=== PATIENT | female | born 1955 | race Caucasian/White ===

== ENCOUNTER → 2020-05-28 16:28 | Outpatient (CLI) | payer MEDICARE, SELFPAY ==
[2020-05-28 17:12] LABS: Erythrocyte Sedimentation Rate 26 mm/hr (0-30)
[2020-05-28 17:15] LABS: Absolute Lymphocyte Count 2.44 X10^3/uL (0.83-4.51); Absolute Neutrophil Count 3.9 X10^3/uL (2.0-7.7); Basophil# 0.03 X10^3/uL; Basophil% 0.4 % (0-1); Eosinophils% 1.4 % (0-5); Hematocrit 41.8 % (37-47); Hemoglobin 14.1 g/dL (12.0-15.0); Lymphocyte # 2.44 X10^3/ul (4.0); Lymphocyte % 34.8 % (19-41); Mean Corp Hgb Conc 33.7 g/dL (32-36); Mean Corpuscular Hgb 32.1 pg (27.0-32.0); Mean Corpuscular Volume 95.2 fL (81-99); Mean Platelet Vol. 10.4 fl (6.2-12.0); Monocyte# 0.57 X10^3/uL; Monocyte% 8.1 % (0-10); NRBC Flagged by Analyzer 0 % (0-5); Neutrophil # 3.85 X10^3/uL (2.7-7.7); Platelet Count 260 K/mm3 (150-450); Red Blood Count 4.39 M/mm3 (4.2-5.4)
[2020-05-28 17:35] LABS: CRP < 2.90 mg/L (0.0-3.0)
== END ==
PROVIDERS: PCP Family Medicine; Referring Provider Specialist; Visit Provider Specialist
DX: Z96.651 Presence of right artificial knee joint (principal)
CPT/HCPCS: 36415; 85025; 85652; 86140

== ENCOUNTER → 2020-06-24 15:31 | Outpatient (CLI) | payer MEDICARE, SELFPAY ==
[2020-06-24 18:56] LABS: Anion Gap 6 (5-15); BUN 15 mg/dL (7-18); BUN/Creat Ratio 14.4 RATIO (10-20); Calcium,Total 8.8 mg/dL (8.5-10.1); Chloride 104 mmol/L (98-107); Creatinine, Serum 1.04 mg/dL (0.55-1.02); EST Glomerular Filtration Rate 56 mL/min (>60); Est Glom Filt Rate - Afr Amer 68 mL/min (>60); Glucose 81 mg/dL (74-106); Potassium 3.5 mmol/L (3.5-5.1); Sodium Level 138 mmol/L (136-145)
== END ==
PROVIDERS: PCP Family Medicine; Visit Provider Family Medicine
DX: Z01.818 Encounter for other preprocedural examination (principal)
CPT/HCPCS: 36415; 80048

== ENCOUNTER → 2020-06-28 06:43 | Outpatient (CLI) | payer MEDICARE, SELFPAY ==
--- NOTE | 2020-06-28 07:02 | CT_ITS ---
STUDY: CT SCAN LOWER EXTREMITY LEFT REASON FOR EXAM: Female, 65 years old. LETA LEFT KNEE RADIATION DOSAGE (If Supplied By Facility): CTDIvol = ( 18.76 ) mGy, DLP = ( 1298.16 ) mGycm. Individualized dose optimization techniques were used for this CT.? TECHNIQUE: Multiple axial tomographic images of the hip joint, knee joint and ankle joint were obtained. Coronal and sagittal reconstruction was obtained as well. COMPARISON: None. FINDINGS: Imaging of the left hip joint was obtained. No significant abnormality is seen. There is a marked degree of joint space narrowing involving the medial compartment of the left knee joint with degenerative spur formation along the medial femoral condyle and the medial tibial plateau. There is also evidence of a degenerative spur formation along the anterior aspect of the medial tibial plateau. Mild to moderate degree of joint space narrowing involving the patellofemoral joint. Small joint effusion. Imaging of the ankle joint demonstrates no significant abnormality. Small plantar spur. CT/Extremity Lower without Contra IMPRESSION: Marked degree of joint space narrowing involving the medial compartment of the knee joint as described with a small joint effusion. Moderate degree of joint space narrowing of the patellofemoral joint. Electronically Signed: Nixon Zaidi, at 9:11 EDT , Service support ,
== END ==
PROVIDERS: PCP Family Medicine; Referring Provider Specialist; Visit Provider Specialist
DX: M21.162 Varus deformity, not elsewhere classified, left knee (principal)
CPT/HCPCS: 73700

== ENCOUNTER 2020-07-14 05:16 | Day surgery (SDC) | payer MEDICARE, SELFPAY ==
--- NOTE | 2020-06-28 08:54 | HP.PCM_ITS ---
History and Physical History and Physical [facility] Patient Name: Nini Diamond : 1955 From: [facility] DATE OF SURGERY: 07/14/2020 SCHEDULED PROCEDURE: left total knee arthroplasty HISTORY OF PRESENT ILLNESS: Preoperative history and physical exam was performed on June 28, 2020. This is a 65-year-old female who has been having ongoing pain for over 4 months with her left knee. She denies any trauma or injury. Patient has had a previous right total knee arthroplasty on July 06, [address] Krause. This was followed by manipulation in July 2016. She did have inflammatory lab work obtained by Dr. Yoel Sotomayor which had normal ESR and CRP. Patient states her right knee surgery did not go as well. Her pain with the left knee can reach 8/10 with activities. Pain is over the anterior aspect. She has increased pain going up and down stairs. She does get occasional sensation of locking with the left knee. She does have start up pain on the left. Patient has tried previous conservative measures including rest, ice, heat with minimal relief. She has been through home exercises with minimal relief. She has been on oral medications consisting of meloxicam and a joint supplement for inflammation. She has had previous viscose supplementation and cortisone injections with minimal relief. Patient uses a cane on occasion due to the knee pain. She currently denies any chest pain, shortness of breath, fevers chills, or recent infections. We have obtain surgical clearance from her primary care physician Dr. Gray. After failing conservative measures and discussing treatment options with Dr. Yoel Sotomayor, the patient does wish to proceed with a left total knee arthroplasty. REVIEW OF SYSTEMS: ROS: Const: Denies change in appetite, fever and weight change. CV: Denies chest pain, heart murmur and irregular heartbeat. Resp: Denies cough, pneumonia, shortness of breath, tuberculosis and wheezing. GI: Denies constipation, diarrhea, heartburn, nausea, rectal itching, bloody stools and vomiting. : Denies incontinence. Musculo: Reports leg swelling and weakness, but denies pain and trouble walking. Skin: Denies Raynaud's, history of shingles and tattoo. Neuro: Denies ambulatory dysfunction, dizziness, numbness/tingling and tremor. Psych: Reports anxiety and stress, but denies insomnia. Buck/Lymph: Denies anemia, bleeding/bruising tendency and past transfusion. Reviewed, no changes. PAST MEDICAL HISTORY: Advance Care Plan: Other Directive, LIVING WILL Effective Date: 08/06/2019 Other Directive, POA Effective Date: 08/06/2019 PMH: Medical Problems: Arthritis, Osteoarthritis Accidents: Other - (05/2019) Finger - 1st Joint Surgical Hx: RT TKR - (2015) Anesthesia Complications: None Assistive Devices: Glasses Reviewed and updated. SOCIAL HISTORY: SH: Marital: Single.Occupation: Currently Working.Work Status: Currently Working - [employer].Hand Dominance: Ambidextrous. Personal Habits: Cigarette Use: Never Smoked Cigarettes.Smokeless Tobacco: Never Used Smokeless Tobacco.E-Cigarette Use: Never Used.Alcohol: Occasionally.Drug Use: Denies Use.Enjoy Exercising: Exercises 1-3 X/Week. Reviewed, no changes. VITALS: Ht: 66.5 Wt: 209lb 6oz Wt k.[id number] BMI: 33.3 BP: 132/82 Pulse: 72 Resp: 22 T: 98.0 T: 36.7C Pain Level: 0 ALLERGIES: No Known Drug Allergy MEDICATIONS: Oxycodone HCL 5 mg 1-2 tab by mouth every 4 hours, Promethazine HCL 12.5 mg 1-2 tablets by mouth every 6 hours, Famotidine 20 mg 1 by mouth every day, Flonase Allergy Relief 50 mcg/Act one spray as needed, Claritin 10 mg 1 cap by mouth daily, Multivitamin Adult 1 by mouth every day, Vitamin C 500 mg 2po qday, Supplement daily PRE-OP EXAM: General appearance:NORMAL Other: Eyes: Conjunctivae and lids: NORMAL Pupils: ERR Ears, Nose, Mouth, and Throat: NORMAL Other: Inspection of lips, teeth and gums: NORMAL Other: Neck: Examination of neck: no masses noted. Respiratory: Assessment of respiratory effort: NORMAL Other: Auscultation of lungs: clear to auscultation no wheezes, rhonchi or rales. Cardiovascular: Auscultation of heart: regular rate and rhythm, positive systolic murmur. Exam of carotid arteries: NORMAL Other: Gastrointestinal: Exam of abdomen: soft, nontender, nondistended bowel sounds present. PHYSICAL EXAMINATION: On clinical exam patient does walk with an antalgic gait. Left knee has tenderness to palpation over the medial joint line. Patient has a varus alignment which is only partially correctable. Patient has firm endpoint with posterior drawer testing. Range of motion left knee: 15 to 115 flexion. She has increased pain with flexion exercises. She has moderate effusion. Sensation intact to light touch. Neurovascularly intact. IMAGING STUDIES: Previous x-rays of the left knee reveal varus alignment with medial joint space narrowing, subchondral sclerosis, osteophyte formation consistent with severe stage IV osteoarthritis. IMPRESSION: 1. Severe left knee osteoarthritis 2. Presence of right total knee arthroplasty 3. Seasonal allergies PLAN: Dr. Yoel Sotomayor did discuss and review with the patient all treatment options including surgical versus nonsurgical options. Patient does wish to proceed with the above-stated procedure. Potential risks, benefits, and complications of the procedure were discussed in detail including but not limited to , infection, nerve and blood vessel damage, persistent pain, numbness, tingling, paresthesias, blood clot, pulmonary embolism, and requirement for possible fu rther surgery. The patient expressed full understanding and has no further questions for the doctor. Patient does agree to proceed with the above-stated procedure and has signed the surgery consent form. We discussed the current risks associated with COVID 19. This does include the risk of exposure while in the hospital. Patient was reassured local hospitals have low infection rates and are taking all necessary precautions to avoid exposure to patients. In addition, we discussed strategies that can be used to help limit exposure including those that limit the patient's time in the hospit al. Also using strategies to limit the patient's need for continued inpatient services after being discharged from the hospital. Patient was notified that we will need to comply with any screening or testing the hospital wishes to perform or that surgery may be delayed for any positive results. This dictation was created using voice recognition software. Phonetic and/or grammatical errors may exist. ___ I have re-examined the patient. There are no clinical changes since date of exam. ___ See progress notes for changes. ___ Dictated on admission Date: Time: Signature:
[2020-07-08 15:27] LABS: AST(SGOT) 24 U/L (15-37); Alanine Aminotransfer ALT/SGPT 28 U/L (13-56); Albumin, Serum 3.6 g/dL (3.2-5.0); Alkaline Phosphatase 93 U/L (45-117); Protein, Total 7.6 g/dL (6.4-8.2)
[2020-07-14] VITALS (8 sets, daily range): BP systolic 96–125; BP diastolic 59–95; PULSE 75–108; RESP 16–17; TEMP 36.1–36.7; O2SAT 96–100; BMI 35.8
[2020-07-14] MEDS: Lactated Ringers 1,000 ML 999 ML IV ×2 (06:11→07:00)
[2020-07-14] MEDS: Lactated Ringers 1,000 ML 75 ML IV (06:11)
[2020-07-14] MEDS: Cefazolin 2 GM in 0.9% Normal Saline 100 ML IV (06:11)
[2020-07-14] MEDS: Gabapentin 600 MG Tablet PO (06:12)
[2020-07-14] MEDS: Scopolamine 1mg/72hr Patch 1 PATCH TRANSDERM. (06:12)
[2020-07-14] MEDS: Acetaminophen 500 MG Tablet 1000 MG PO (06:13)
[2020-07-14] MEDS: Celecoxib 200 MG Capsule 400 MG PO (06:13)
[2020-07-14 06:56] LABS: Bedside Glucose 93 mg/dL (70-110)
[2020-07-14] MEDS: dexAMETHasone 10 MG/ML Vial IV (07:40)
--- NOTE | 2020-07-14 08:49 | OP.PCM_ITS ---
Report of Operation Date of Procedure: 07/14/20 Pre-Operative Diagnosis: Left knee primary osteoarthritis Post-Operative Diagnosis: Left knee primary osteoarthritis Surgery/Procedure Performed:: Left minimally invasive robotic assisted total knee replacement Description of Surgical Findings:: Stable knee with good patella tracking maintenance manager: Aleshia Angulo Type of Anesthesia:: Spinal Anesthesiologist: Lucio Granado Special Medications: 2 g Ancef, 1 g TXA at incision, 1 g TXA closure, 10 mg Decadron, joint cocktail (5 mg Duramorph, 30 mL of 0.5% Ropivicaine, 1000 units of epinephrine, 30 mg of Toradol) Estimated Blood Loss (mL): 75 Fluids Replaced: 900 mL crystalloid Description of Procedure: Implants used: 1. Ines size 3 triathlon cruciate retaining distal femoral press-fit component 2. Marcus Hook size 4 press-fit tritanium tibial baseplate 3. Ines X3 10 mm CS polyethylene 4. Marcus Hook X3 32 mm6 asymmetric patella Brief history operative indications:65-year-old F with history of left knee osteoarthritis with radiographic findings with loss of joint space, osteophyte formation and subchondral sclerosis. Failed conservative measures as mentioned in the H&P. Discussion of total knee arthroplasty as well as risk and benefits were discussed the patient including but not limited to blood loss, DVTs, PEs, neurovascular damage, general risk of anesthesia including loss of life, and stiffness or instability were discussed with patient. Patient demonstrated understanding and was able to sign informed consent. Procedure: On the date of procedure patient's left lower extremity was marked in the preoperative area. The patient was then taken back to the operating room where the patient was placed on the table in the supine position. All bony prominences were identified a well-padded. Anesthesia assumed control of the C-spine and airway and remained controlled throughout the remainder of the procedure. A tourniquet was placed on the left upper thigh and the leg was prepped in a sterile fashion. The surgeon then scrubbed at this time .Upon reentering the room left lower extremity was draped in a standard orthopedic fashion. A timeout was then called and everyone agreed upon the side, the site, the procedure to be performed, patient's identity and antibiotics given. Esmarch bandage was used to exsanguinate the extremity and the tourniquet was placed up to 250 mmHg with the knee in flexion. A midline skin incision was made and sharp dissection was taken down through skin subcutaneous tissue and fat. The standard medial parapatellar incision was made and the patella was subluxed laterally. An Appropriate deep MCL release was done and the fat pad was resected. Our attention was then directed to the patella. The patella was everted and a flat resection was made. The knee was then flexed up in 2 femoral pins were placed inside the incision and 2 tibial pins were placed outside the incision in the medial tibia bicortically. Once this was completed the 2 checkpoints in the femur and tibia were placed. Knee was then flexed up and the bony landmarks were registered. Once this was completed knee was taken through range of motion and manually stressed allowing us to a plan for an appropriate tibial cut. The robotic arm was brought into the field sterilely and checkpoint and saw were registered. Based on the patient's deformity the tibial cut was made in 2 degrees of varus. At this time the tensioner was then placed in the joint and ligament tension was checked at 90 degrees and full extension. Based on the patient's ligamentous tension appropriate adjustments were made to the operative plan and ligament releases were done. Once we were happy with our operative plan with balanced flexion and extension gaps our attention was directed to the femur. The robot was brought into the field sterilely and registered. Posterior condylar cuts, anterior chamfer cuts and anterior cuts were appropriately made for a size 3 femur. When these were completed the saws were switched out in the distal femoral and posterior chamfer cuts were made. Protecting the soft tissue throughout this time. A size 4 tibial base plate was selected. the knee was flexed to 90 degrees and the soft tissues and posterior osteophytes were removed from the joint. 40 cc of the periarticular injection was injected into the posterior medial corner of the joint. The appropriate trials were then placed on the femur and tibia. A trial polyethylene was trialed to ensure proper balancing and stability of the knee. The appropriate tibial internal rotation was then marked with a bovie. Our attention was then directed to the patella. The lug holes were drilled and the patella trial was placed. Patellar tracking was checked and deemed appropriate. Once we were happy lug holes were drilled for the femur and trial components w ere removed. the tibia was subluxed and pinned into place and the keel was punched and drilled appropriately. Final components were verified and opened, and cement was mixed in a vacuum. [place] Simplex cement was used. The wound was copiously irrigated with normal saline. When the cement was ready the components were impacted into place starting with the tibia, femur and finally cementing the patella. The trial poly component was placed and the knee was placed in full extension. All excess cement was removed in the process. Once the cement had cured the tracking, alignment and balance were verified and a size 10 mm CS polyethylene component was placed. Once the final components were placed an Irrisept lavage was performed and the wound was copiously irrigated with normal saline solution and the periarticular injection was given. The wound was closed in a layer valera fashion using #1 vicryl interrupted sutures for the arthrotomy, 2-0 interrupted Vicryl suture for the subcuticular layer and ken for final skin closure. A sterile compressive dressing was then placed. The patient was then awakened from anesthesia, transferred to the [facility] and transferred to the PACU for recovery. Post op plan DVT ppx: ASA 81mg BID, thigh high compression stockings Follow up: in office in 2 weeks for wound check PT: to start POD #0 at hospital, outpatient PT should be arranged. Due to the complexity of this case robotic arm was used to assist in the surgery to improve accuracy and clinical outcomes. - Complications No intraoperative complications - Admit VTE Documentation VTE Present on Admission: No VTE Mechan Device Prophylaxis: SCD's, Thigh High KEYA Hose VTE Pharm Prophylaxis ordered?: Yes
[2020-07-14] MEDS: Lactated Ringers 1,000 ML 125 ML IV ×2 (09:30→11:30)
--- NOTE | 2020-07-14 09:50 | RAD_ITS ---
STUDY: X-RAY - LEFT KNEE REASON FOR EXAM: Female, 65 years old. POST OP LEFT TKA TECHNIQUE: 2 view(s) of the knee. COMPARISON: None. FINDINGS: Normal visualized distal femur. Normal visualized proximal tibia and fibula. Normal proximal tibiofibular articulation. The patient is status post total knee replacement. There is good alignment. Postoperative soft tissue changes. RAD/Knee 1 or 2 Views IMPRESSION: Status post total knee replacement. There is good alignment. Postoperative soft tissue changes. Electronically Signed: Nixon Zaidi, at 13:41 EDT , Service support ,
--- NOTE | 2020-07-14 11:27 | SUR.PHASEII ---
ABLE TO STAND AT BEDSIDE USING WALKER AND MARCH IN PLACE. REPORTS PAIN 3/10 TO LEFT KNEE WHICH IS TOLERABLE, DENIES NEED FOR PAIN MED. INSTRUCTED TO NOTIFY RN IF PAIN REACHES 5-6/10. PATIENT INCONTINENT URINE, SKIN CARE PROVIDED. NOTIFIED DENY PT, THAT PATIENT READY FOR EVALUATION.
[2020-07-14] MEDS: Cefazolin 1 GM/50 ML BAG IV (13:11)
== END 2020-07-14 14:02 | disposition home or self-care (01) ==
LOC: SDC 05:17 → AC 05:17
PROVIDERS: Anesthesiology; PCP Family Medicine; Referring Provider Specialist; Visit Provider Specialist
PROC: 0SRD0JZ Replacement of Left Knee Joint with Synthetic Substitute, Open Approach (ICD-10-PCS; CPT 27447; principal; 2020-07-14 07:00)
DX: M17.12 Unilateral primary osteoarthritis, left knee (principal); Z20.828 Contact with and (suspected) exposure to other viral communicable diseases; Z79.899 Other long term (current) drug therapy; K21.9 Gastro-esophageal reflux disease without esophagitis; Z86.010 Personal history of colon polyps; Z86.19 Personal history of other infectious and parasitic diseases
CPT/HCPCS: 01400; 27447; 64447; S2900; 36415; 73560; 80076; 82962; 83735; 87077; 87081; 87635; 97162; C1776; C9803; J7120; J2405; U0003

== ENCOUNTER → 2020-08-03 16:19 | Outpatient (CLI) | payer MEDICARE, SELFPAY ==
[2020-08-03 14:31] VITALS: BMI 36.0
[2020-08-06 16:48] LABS: HPV APTIMA, High Risk Negative (Negative)
== END ==
PROVIDERS: PCP Family Medicine; Referring Provider Obstetrics & Gynecology; Visit Provider Obstetrics & Gynecology
DX: Z12.4 Encounter for screening for malignant neoplasm of cervix (principal); R87.619 Unspecified abnormal cytological findings in specimens from cervix uteri
CPT/HCPCS: 87624; 88175; G0145

== ENCOUNTER 2020-09-29 06:26 | Day surgery (SDC) | payer MEDICARE, SELFPAY ==
[2020-08-03 14:31] VITALS: BMI 36.0
[2020-09-29 06:52] VITALS: BP 131/70; PULSE 85; RESP 14; TEMP 36; O2SAT 96; BMI 34.2
[2020-09-29] MEDS: Lactated Ringers 1,000 ML 100 ML IV (07:06)
--- NOTE | 2020-09-29 08:06 | OP.PCM_ITS ---
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 She struggled to regain flexion. We elected to proceed with a manipulation if she needed 1 on the contralateral side. Procedure: On the date of procedure patient's right lower extremity is marked in the preoperative area. They were brought back to the operating room where they were left on her gurney. Anesthesia was administered and anesthesia assumed control her C-spine airway and remaining control throughout the main procedure. Once patient was comfortably asleep the preoperative range of motion was measured at 95?. Gentle pressure was placed on the knee with the hip in flexion scar tissue was broken up and the knee was flexed 115? with calf to thigh at extreme flexion. At the conclusion of the manipulation the knee is placed in extension lateral suprapatellar portal was identified and a 18-gauge needle was used to place an intra-articular cortisone injection containing 2 mL of betamethasone and 10 mL of 0.5% Marcaine with epinephrine. Patient tolerated the procedure well was awakened by anesthesia and transferred back to recovery. Postoperative plan: Patient will proceed with physical therapy this afternoon. They varghese start a prednisone Dosepak tomorrow. They will have physical therapy every day for 2 weeks and follow-up in 2 weeks. Montelukast will be written for 6 weeks. - Complications No intraoperative complications - Admit VTE Documentation VTE Present on Admission: No VTE Mechan Device Prophylaxis: SCD's, Thigh High KEYA Hose VTE Pharm Prophylaxis ordered?: Yes
[2020-09-29 08:16] VITALS: BP 126/58; BP 131/70; PULSE 82; RESP 16; TEMP 36.6; O2SAT 98
[2020-09-29 08:30] VITALS: BP 108/67; BP 131/70; PULSE 87; RESP 16; O2SAT 99
[2020-09-29] MEDS: Ketorolac 15 MG/ML Vial IV (08:44)
[2020-09-29 08:46] VITALS: BP 126/70; BP 131/70; PULSE 91; RESP 16; O2SAT 95
[2020-09-29 08:56] VITALS: BP 131/70; BP 134/58; PULSE 84; RESP 16; TEMP 37.1; O2SAT 96
[2020-09-29 09:10] VITALS: BP 131/70
== END 2020-09-29 09:14 | disposition home or self-care (01) ==
LOC: SDC 06:42 → AC 06:42
PROVIDERS: PCP Family Medicine; Referring Provider Specialist; Visit Provider Specialist
PROC: (CPT 27570; principal; 2020-09-29 07:55)
DX: M24.662 Ankylosis, left knee (principal); Z96.652 Presence of left artificial knee joint; K21.9 Gastro-esophageal reflux disease without esophagitis; Z86.19 Personal history of other infectious and parasitic diseases; Z79.899 Other long term (current) drug therapy
CPT/HCPCS: 01380; 27570; 64447; 87426; C9803; J7120

== ENCOUNTER → 2020-11-25 08:21 | Outpatient (CLI) | payer MEDICARE, SELFPAY ==
[2020-11-25 09:47] LABS: Anion Gap 6 (5-15); BUN 25 mg/dL (7-18); BUN/Creat Ratio 26.6 RATIO (10-20); Calcium,Total 9.1 mg/dL (8.5-10.1); Chloride 103 mmol/L (98-107); Cholesterol 213 mg/dL (200); Creatinine, Serum 0.94 mg/dL (0.55-1.02); EST Glomerular Filtration Rate 63 mL/min (>60); Est Glom Filt Rate - Afr Amer 77 mL/min (>60); Glucose 77 mg/dL (74-106); High Density Lipoprotein 63 mg/dL; Potassium 3.8 mmol/L (3.5-5.1); Sodium Level 137 mmol/L (136-145); Triglycerides 117 mg/dL; Very Low Density Lipoprotein 23 mg/dL (5-40)
== END ==
PROVIDERS: PCP Family Medicine; Visit Provider Family Medicine
DX: Z00.00 Encounter for general adult medical examination without abnormal findings (principal); N18.30 Chronic kidney disease, stage 3 unspecified; E78.5 Hyperlipidemia, unspecified
CPT/HCPCS: 36415; 80048; 80061

== ENCOUNTER 2021-01-19 07:51 | Day surgery (SDC) | payer MEDICARE, SELFPAY ==
[2021-01-19] VITALS (7 sets, daily range): BP systolic 92–118; BP diastolic 54–81; PULSE 53–72; RESP 16–18; TEMP 36.8–37.1; O2SAT 99–100; BMI 35.0
[2021-01-19] MEDS: Lactated Ringers 1,000 ML 100 ML IV (08:10)
--- NOTE | 2021-01-19 08:17 | HP.PCM_ITS ---
HPI - General HPI Narrative LUIS ARMANDO KHAN, is a 66 F who presents for screening colonoscopy due to family history of colon cancer and history of polyps. Patient's father was age 40 when he was diagnosed with colon cancer. Patient last colonoscopy was in 2017 she did have 1 or 2 polyps at that time per patient. Patient was scheduled to come back in 3 years however patient did have knee surgery in that time and was unable to come back that soon. Patient has bowel once daily denies any blood. Denies any chronic abdominal pain/nausea/vomiting/reflux. FORMERLY [facility], [facility] Medical History (Updated 01/19/21 @ 09:[address] Brigette Corley MD) Family history of colon cancer Heartburn Hepatitis History of colon polyps Non-smoker Post-menopausal Wears glasses Home Medications fluticasone propionate 1 spray NASAL DAILY 06/29/20 [History Last Taken Unknown] loratadine 10 mg PO DAILY 06/29/20 [History Last Taken Unknown] jq-nog-eiurl-calcium carb-K1 1 ea PO DAILY 06/29/20 [History Last Taken Unknown] Allergy/AdvReac Type Severity Reaction Status Date / Time No Known Allergies Allergy Verified 01/19/21 08:16 Family History (Updated 01/19/21 @ 09:[address] Brigette Corley MD) Father Colon cancer Mother Heart disease COPD (chronic obstructive pulmonary disease) Other Family history of colon cancer Surgical History (Updated 01/17/21 @ 15:43 by Ramya Turner) H/O section H/O knee surgery History of tonsillectomy and adenoidectomy Hx of left knee surgery Social History (Updated 08/03/20 @ 15:[address] 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 [employer] Smoking Status: Never smoker second hand exposure: No alcohol intake: current alcohol intake frequency: holidays/special occasions only substance use type: does not use seatbelt use: always do you feel safe at home: Yes Past Medical/Surgical History Planned Operation Planned Operative Procedure/s: cscope open access S.O.S: No Previous Hospitalizations/Surgeries HX Hospitalizations: No HX of Surgeries: tonsillectomy age 5 infertility procedure/lap/1989 age 37 total right knee 2016 colonoscopy x3 L TKR 07/14/20 Any Problems With Anesthesia: No You/Your Family Experience Fever (Hyperthermia) With Anes: No Cholinesterase deficiency: No Cardiovascular Hx Chest Pain within Last 2 months: No Hx of Irregular Heartbeat and/or Afib: No Hx Heart Attack: No Hx Congestive Heart Failure: No Hx Rheumatic Fever: No Hx Hypertension: No Hx Internal Defibrillator: No Hx Pacemaker: No Hx Cardiac Catheterization: No Hx Cardiac Surgery/Stents/Etc.: No Hx Stress Test: No Hx Pain in Legs when Walking/Leg Cramps: No Respiratory Chronic Cough: No HX of Shortness of Breath: No (denies) Hoarseness: No Hx Chronic Obstructive Pulmonary Disease (COPD): No Hx Asthma: No Hx Emphysema: No Hx Sleep Apnea: No Hx Respiratory Tract Infection/Cold (presently): No Do You Snore Loudly (louder than talking or can be heard): No Do You Often Feel Tired/ Fatigued/ Sleepy Dring Daytime?: No Has Anyone Observed You Stop Breathing During Sleep?: No Result (for STOP score): Negative Hx Smoking: No Smoking Status: Never smoker Gastrointestinal Hx Gastroesophageal Reflux: Yes (occas) Controlled With Meds: Yes (TUMS as needed) Hx Gastrointestinal Disorders: Yes (polyps) Hx Gastrointestinal Bleed: No Hx Ulcer: No Hx Hiatal Hernia: No Difficulty Chewing/Swallowing: No Special diet followed at home: No Hx Unplanned Weight Loss of 20#: No HX Unplanned Weight Gain of 20#: No Neurological Hx Seizures: No HX Syncope/Blackout Spells/Unconsciousness: No Hx Transient Ischemic Attacks (TIA): No Hx Multiple Sclerosis: No Hx Parkinson's Disease: No Hx Head/Neck Injury: No Hx Headaches: No Hx Back Injury/Pain: No Recent Onset of Speech Difficulty: No Restless Legs: No Does patient have nerve stimulator: No Blood Disorder Hx Leukemia: No Bleeding Tendencies: No Hx Deep Vein Thrombosis: No Hx High Cholesterol: No (borderline) Blood Transmitted Disease: No Hx Hepatitis: Yes (age 7,treated) Hx Cirrhosis: No Hx Anemia: No Hx Blood Disorders: No Reproduction : No Is Patient Lactating: No Hx Hysterectomy: No Hx Tubal Ligation: No Are You Post Menopause: Yes Genitourinary Hx Renal Disease: No (denies problems voiding post op) Musculoskeletal Hx Arthritis: Yes Hx Rheumatoid Arthritis: No Hx Gout: No Recent Onset of an Orthopedic Problem: No (chronic knee pain) Endocrine Hx Diabetes: No Thyroid Disease: No Hx Steroid Therapy: No Psycho/Social Hx Substance Use: No Hx Alcohol Use: No Hx Anxiety: No Hx Depression: No Mental Illness: No Hx Dementia: No Miscellaneous Hx Cancer: No Recent Exposure to Contagious Disease: No Hx of C-Diff: No Any Loose Teeth: No Allergies No Known Allergies Allergy (Verified 01/19/21 08:16) Discharge Is Pt Admitted From a Shelter, or a Prison: No After D/C, Where Do you Plan to Go: Return Home From the PAT History Number of Risk Factors: 2 Physical Exam Const alert, oriented x3 and no apparent distress HEENT normocephalic and head/scalp atraumatic Resp normal respiratory effort Cardio regular rate GI soft to palpation and non-distended Palpation: Negative for tender or guarding Extremity no clubbing, cyanosis or edema Neuro CN's II-XII intact bilaterally Psych mental status grossly normal Assessment & Plan Assessment/Plan (1) Family history of colon cancer: Status: Chronic Code(s): Z80.0 - Family history of malignant neoplasm of digestive organs (2) History of colon polyps: Status: Chronic Code(s): Z86.010 - Personal history of colonic polyps Procedure Criteria Procedure Type: Elective COVID Risk Discussion: The surgeon/proceduralist and patient have discussed in detail the risk of exposure to and/or potential harm posed by the COVID-19 virus with having a surgery/procedure at this time versus the risk of delaying the surgery/procedure. It is not possible to know either the risk of delaying the surgery or procedure or chance of getting an infection with perfect accuracy, but a joint decision was made between the patient and the surgeon/proceduralist to proceed at this time with the scheduled surgery/procedure as indicated on the consent form. Surgery Risks - Colonoscopy Risks Include but are not Limited To: Risks include but are not limited to: Bleeding, perforation requiring further surgery, inability to complete colonoscopy requiring barium enema.
--- NOTE | 2021-01-19 09:00 | COLBX_PTH ---
PATIENT: LUIS ARMANDO KHAN LOC: EN U#:[id number] AGE/SX: 66/F ROOM: RE01/19/[address]: Dr. Brigette Corley MD : 1955 BED: DIS: 01/19/2021 SPEC #: [id number] RECD: 01/19/21 11:37 STATUS: KADEEM REEfraín #: [id number] PHYLLIS: 01/19/21 09:[address]: Brigette Corley DEPT: SURGICAL PATHOLOGY RECD BY: Bucky Hadley ENTERED: 01/19/21 13:26 SP TYPE: COLON BX OT DR: Dr. Argenis Gray MD Tissues: A - Descending colon B - Sigmoid colon biopsy Procedures: Surgery Specimen Level IV HEADER OPERATION: Colonoscopy ? open access (MAC) PRE-OP DIAGNOSIS: Family history of malignant neoplasm of digestive organs TISSUE SUBMITTED: A ? Biopsy of descending colon at 70 cm, B ? Sigmoid polyp biopsy MICROSCOPIC DIAGNOSIS A. Descending colon at 70 cm, biopsy: Fragments of hyperplastic polyp. B. Sigmoid polyp, biopsy: Fragments of colonic mucosa, no pathologic diagnosis. JERONIMO:mari 01/20/2021 MICROSCOPIC DESCRIPTION Slides are reviewed. GROSS DESCRIPTION A - Received in fixative is one container labeled with the patient's name and designated biopsy of descending colon at 70 cm. The specimen consists of multiple irregular fragments of light laird soft tissue that in aggregate measure 2 x 0.5 x 0.1 cm. The specimen is totally submitted in one cassette. B - Received in fixative is one container labeled with the patient's name and designated sigmoid polyp biopsy. The specimen consists of multiple irregular fragments of light laird soft tissue that in aggregate measure 1 x 0.3 x 0.1 cm. The specimen is totally submitted in one cassette. / JERONIMO:mari 01/19/21 TC:1 CPT: 12552 x2
--- NOTE | 2021-01-19 09:49 | OP.COLON_ITS ---
Patient Name: Nini Diamond Procedure Date: 01/19/2021 9:08 AM Date of : 1955 Age: 66 Procedure: Colonoscopy Indications: High risk colon cancer surveillance: Personal history of colonic polyps, Family history of colon cancer in a first-degree relative Providers: Brigette Corley MD Referring MD: Argenis Gray Medicines: Monitored Anesthesia Care Patient Profile: This is a 66 year old female. Last Colonoscopy: 2016. Complications: No immediate complications. Procedure: Pre-Anesthesia Assessment: - Prior to the procedure, a History and Physical was performed, and patient medications and allergies were reviewed. The patient's tolerance of previous anesthesia was also reviewed. The risks and benefits of the procedure and the sedation options and risks were discussed with the patient. All questions were answered, and informed consent was obtained. Prior Anticoagulants: The patient has taken no previous anticoagulant or antiplatelet agents. ASA Grade Assessment: Per anesthesia. After reviewing the risks and benefits, the patient was deemed in satisfactory condition to undergo the procedure. After I obtained informed consent, the scope was passed under direct vision. Throughout the procedure, the patient's blood pressure, pulse, and oxygen saturations were monitored continuously. The colonoscope was introduced through the anus and advanced to the cecum, identified by the appendiceal orifice, ileocecal valve and palpation. The colonoscopy was performed without difficulty. The patient tolerated the procedure well. The quality of the bowel preparation was good. Scope In: 9:17:46 AM Scope Withdrawal Time 0 hours 16 minutes 10 seconds Scope Out: 9:40:30 AM Total Procedure Duration Time 0 hours 22 minutes 44 seconds Findings: Hemorrhoids were found on perianal exam. Internal hemorrhoids were found. The hemorrhoids were Grade I (internal hemorrhoids that do not prolapse). A less than 5 mm polyp was found in the sigmoid colon. The polyp was sessile. The polyp was removed with a cold biopsy forceps. Resection and retrieval were complete. A 7 mm polyp was found in the descending colon. The polyp was sessile. The polyp was removed with a piecemeal technique using a cold biopsy forceps. Resection and retrieval were complete. A few small-mouthed diverticula were found in the sigmoid colon. Impression: - Hemorrhoids found on perianal exam. - Internal hemorrhoids. - One less than 5 mm polyp in the sigmoid colon, removed with a cold biopsy forceps. Resected and retrieved. - One 7 mm polyp in the descending colon, removed piecemeal using a cold biopsy forceps. Resected and retrieved. - Diverticulosis in the sigmoid colon. Recommendation: - Discharge patient to home. - High fiber diet. - Continue present medications. - Await pathology results. - Repeat colonoscopy 1-3 years for surveillance based on pathology results. Procedure Code(s): --- Professional --- 57252, PT, Colonoscopy, flexible; with biopsy, single or multiple Diagnosis Code(s): --- Professional --- Z86.010, Personal history of colonic polyps K64.0, First degree hemorrhoids D12.5, Benign neoplasm of sigmoid colon D12.4, Benign neoplasm of descending colon Z80.0, Family history of malignant neoplasm of digestive organs K57.30, Diverticulosis of large intestine without perforation or abscess without bleeding CPT copyright 2017 [employer]. All rights reserved. The codes documented in this report are preliminary and upon international trade teacher review may be revised to meet current compliance requirements. MD Brigette Couch MD 01/19/2021 9:48:45 AM This report has been signed electronically. Number of Addenda: 0 Note Initiated On: 01/19/2021 9:08 AM
--- NOTE | 2021-01-19 09:49 | OP.CCLET_ITS ---
01/19/2021 Argenis Gray [place] [id number] [place] [address] Re : Colonoscopy procedure for Nini Diamond Dear Dr. Gray This procedure was performed on Tuesday, January 19, 2021. My impressions and recommendations are as follows: Impressions : - Hemorrhoids found on perianal exam. - Internal hemorrhoids. - One less than 5 mm polyp in the sigmoid colon, removed with a cold biopsy forceps. Resected and retrieved. - One 7 mm polyp in the descending colon, removed piecemeal using a cold biopsy forceps. Resected and retrieved. - Diverticulosis in the sigmoid colon. Recommendations : - Discharge patient to home. - High fiber diet. - Continue present medications. - Await pathology results. - Repeat colonoscopy 1-3 years for surveillance based on pathology results. My findings are described in the full procedure note, which is enclosed. If I can be of further assistance, please feel free to contact me at Doctor phone number(s): , Work: . Sincerely, MD Brigette Couch MD 01/19/2021 9:48:45 AM This report has been signed electronically.
== END 2021-01-19 10:23 ==
LOC: EN 07:52 → AC 07:53
PROVIDERS: PCP Family Medicine; Referring Provider Family Medicine; Visit Provider Surgery
PROC: 0DJD8ZZ Inspection of Lower Intestinal Tract, Via Natural or Artificial Opening Endoscopic (ICD-10-PCS; CPT 45378; principal; 2021-01-19 08:55)
DX: Z12.11 Encounter for screening for malignant neoplasm of colon (principal); K63.5 Polyp of colon; K64.0 First degree hemorrhoids; K57.30 Diverticulosis of large intestine without perforation or abscess without bleeding; E66.9 Obesity, unspecified; Z80.0 Family history of malignant neoplasm of digestive organs; Z98.891 History of uterine scar from previous surgery; Z98.890 Other specified postprocedural states; Z68.35 Body mass index [BMI] 35.0-35.9, adult; Z86.010 Personal history of colon polyps
CPT/HCPCS: 45380; 88305; J7120; J2405

== ENCOUNTER → 2021-09-01 09:24 | Outpatient (CLI) | payer MEDICARE, SELFPAY ==
--- NOTE | 2021-09-01 09:28 | RAD_ITS ---
STUDY: X-RAY CHEST REASON FOR EXAM: Female, 66 years old. CHRONIC COUGH TECHNIQUE: PA and lateral views of the chest. COMPARISON: None. FINDINGS: Minimal increased linear marking in the lingular segment of the left upper lobe suggestive of linear scarring and/or atelectasis There is no demonstrated pleural abnormality. Normal size heart. Normal mediastinum and heather. Normal visualized pulmonary arteries. Normal visualized aortic arch and descending thoracic aorta. There are degenerative changes of the visualized thoracic spine. Normal visualized ribs, clavicles, and shoulders. There is no demonstrated abnormality of the visualized soft tissue structures of the upper abdomen. RAD/Chest PA and Lateral IMPRESSION: Focal linear scarring and/or atelectasis in the lingular segment of the left upper lobe. Electronically Signed: Nixon Zaidi MD at 10:18 EST , Service support ,
== END ==
PROVIDERS: PCP Family Medicine; Referring Provider Otolaryngology; Visit Provider Otolaryngology
DX: R05.3 Chronic cough (principal)
CPT/HCPCS: 71046

== ENCOUNTER 2021-11-15 06:41 | Outpatient (CLI) | payer MEDICARE, SELFPAY ==
--- NOTE | 2021-11-15 13:46 | PFTCOMP ---
COMPLETE PULMONARY FUNCTION TEST INTERPRETATION Brief HPI: Patient is a 66 year old female, currently under the care of myself, who presents to [facility] for complete pulmonary function tests secondary to diagnosis of chronic cough. Respiratory therapist reports good effort and reproducible results. Interpretation: Forced expiration spirometry shows no large airways obstructive ventilatory defect with an FEV1 of 86% predicted. There is no significant bronchodilator response by strict ATS criteria. Spirograms are of good quality and plateau normally. The respiratory flow volume loop shows a normal pattern. Lung volumes by body plethysmography show a normal total lung capacity at 4.83L, 100% predicted. All other lung volumes are within normal limits. Diffusion capacity by carbon monoxide is decreased at 47% predicted. The airway resistance is normal. No previous pulmonary function tests were available for review. Impression: Isolated reduction in diffusion capacity with relatively preserved lung volumes and spirometry.
== END 2021-11-15 23:59 | disposition home or self-care (01) ==
LOC: PSN 06:43
PROVIDERS: PCP Family Medicine; Referring Provider Internal Medicine Critical Care Medicine; Visit Provider Internal Medicine Critical Care Medicine
DX: R05.3 Chronic cough (principal)
CPT/HCPCS: 94060; 94726; 94729

== ENCOUNTER 2021-12-12 12:16 | Day surgery (SDC) | payer MEDICARE, SELFPAY ==
[2021-12-12] MEDS: Lactated Ringers 1,000 ML 15 ML IV (12:55)
[2021-12-12 12:58] VITALS: BP 130/77; PULSE 67; RESP 16; TEMP 36.4; O2SAT 100; BMI 36.3
--- NOTE | 2021-12-12 13:29 | HP.PCM_ITS ---
History and Physical Date of Admission: 12/12/21 Date of Service: 12/02/21 MR#:[id number]:[id number]: LUIS ARMANDO KHAN #:[id number]:[id number] Provider:Dr. 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 They are referred for surgical consultation from Dr. Palomo of ENT. Patient states that she initially presented to Dr. Palomo for complaint of a barking cough. She states that this has a barking quality. She had experienced it in prior years with an onset of approximately January timeframe that would then last until April and spontaneously remit. How ever, last year it persisted beyond the usual time and that is when she decided to seek evaluation. She notes that things like using a humidifier at home and at work improve this cough. She denies any history of asthma. She has recently met with pulmonary and completed PFTs which she is due to follow-up on early next week. Patient also complains of some occasional burning in the back of her throat as well as some burping. She states this started approximately a year ago following a knee surgery. She admits that during her convalescence she gained approximately 10 pounds. However, since starting omeprazole with Dr. Palomo the symptoms seem to have totally resolved. Out of concern for possible long-term effects with PPI medications, she requested a switch to famotidine. She is cur rently taking 40 mg daily and has not noted any breakthrough symptoms. She confesses that although she and Dr. Palomo discussed avoidance of food triggers, she has some difficulty with some of these restrictions and continues to drink about 1 Pepsi daily. Patient states that her family history is relatively unremarkable (and she remarks that they generally enjoy significant longevity) aside from her father who was diagnosed with colon cancer at 40. She is up-to-date with her surveillance colonoscopies?last undergoing colonoscopy 01/19/2021 with findings of hyperplastic polyps. ROS General General: No weight change, appetite, fatigue, colon cancer, breast cancer or weakness HEENT HEENT: No difficulty swallowing, eye injury, eye surgery, swollen glands or hoarseness Endo Endocrine: No thyroid disease, diabetes mellitus, thyroid cancer, Hair loss, heat intolerance or cold intolerance Skin Skin: No rash or changing moles Breast Breast: No left breast lump, right breast lump, nipple discharge, breast pain, abnormal mammogram, abnormal US or breast enlargement Musc Musculoskeletal: Yes arthritis; No back problems, rheumatoid arthritis, gout or joint pain Cardio Cardiovascular: No murmur, pacemaker, heart disease, atrial fibrillation, high blood pressure, heart attack, heart stent, palpitations, shortness of breat with exertion or chest pain Psych Psychiatric: Yes anxiety; No depression or hearing voices Resp Respiratory: No shortness of breath, No sleep apnea, Yes cough, No COPD, No asthma, No emphysema and No wheezing Gastro Gastrointestinal: No abdominal pain, No nausea or vomiting, No diarrhea, No constipation, No blood in stool, Yes acid reflux, No hemorrhoids, No ulcers, No gallbladder problem and No black,tarry stools Buck Hematologic: No blood thinners, No blood disorders, No bleeding, No anemia and No blood clots Neuro Neurologic: No system reviewed and no additional complaints, except as documented, No as per HPI, No abnormal gait, No abnormal hearing, No abnormal movements, No abnormal speech, No behavioral changes, No burning sensations, No confusion, No convulsions, No disequilibrium, No dizziness, No localized weakness, No frequent falls, No headache(s), No lack of coordination, No loss of vision, No memory loss, No numbness, No other visual disturbances, No radicular pain, No restless legs, No sensory deficit, No syncope, No tingling, No tremor(s), No weakness and No other Exam Const General: cooperative, healthy appearing, comfortable, no acute distress and anxious Orientation: alert, awake and oriented x3 GI Inspection: normal to inspection, non-distended and obesity Palpation: soft, no hernias and nontender Assessment and Plan Assessment and Plan (1) Chronic cough: Status: Chronic Comment: This is a 66-year-old female with chronic cough of undetermined etiology. Given her concurrent issues with reflux, there is some suspicion that this may be related to aspiration events. Therefore, I have informed her it is reasonable to pursue an EGD evaluation to assess for any structural abnormality such as a hiatal hernia as well as to assess for any histologic changes in response to the acid she is feeling. She sees this as reasonable and wishes to schedule this investigation today. Plan - Dr. Gerald Portillo MD: EGD under local MAC at first mutual availability (2) Acid reflux: Status: Acute Comment: This is a 66-year-old female with approximately 1 year history of acid reflux that has caused a uncomfortable burning sensation in the back of her throat. This has been very responsive to initially PPI therapy?and now H2 campos therapy. This potentially was precipitated by a weight gain following patient's knee surgery a year ago. Patient admits partial compliance with recommendations for lifestyle modification to decrease likelihood for reflux events. Given the possible connection to the patient's chronic cough, EGD is recommended. Patient denies complaints of frequent nausea or bloating so H. pylori is felt to be less likely, but cultures may still be obtained depending on findings of the endoscopic exam. Plan - Dr. Gerald Portillo MD: EGD under local MAC at first mutual availability I have re-examined the patient. There are no clinical changes since date of exam. Patient nor her spouse have any questions related to the procedure. Therefore we will plan to proceed as described above with EGD under local MAC.
--- NOTE | 2021-12-12 13:30 | EGD_PTH ---
PATIENT: LUIS ARMANDO KHAN LOC: EN U#:[id number] AGE/SX: 66/F ROOM: RE12/12/[address]: Dr. Gerlad Portillo MD : 1955 BED: DIS: 12/12/2021 SPEC #: [id number] RECD: 12/12/21 14:04 STATUS: KADEEM STONE #: [id number] PHYLLIS: 12/12/21 13:[address]: Gerald Portillo DEPT: SURGICAL PATHOLOGY RECD BY: Bucky Hadley ENTERED: 12/13/21 08:21 SP TYPE: EGD BIOPSY [facility] DR: Dr. Argenis Gray MD Tissues: A - Gastric mucous membrane B - Gastric mucous membrane Procedures: Special Stain Group II Surgery Specimen Level IV Alcian Blue/PAS (control) HEADER OPERATION: EGD ([facility] [place] PRE-OP DIAGNOSIS: Chronic cough, heartburn, acid reflux TISSUE SUBMITTED: A ? Antral biopsy and H. pylori, B ? Biopsy GE junction MICROSCOPIC DIAGNOSIS A. Gastric antrum, biopsy: Chronic gastritis. See comment. B. Gastroesophageal junction, biopsy: Chronic inflammation. No evidence of goblet cell metaplasia. See comment. AM:mari 12/14/2021 COMMENT A. The results of immunohistochemistry for Helicobacter pylori will be reported separately ([id number]). B. Alcian blue/PAS stain with matched control supports the above diagnosis. MICROSCOPIC DESCRIPTION Slides are reviewed. GROSS DESCRIPTION A - Received in fixative is one container labeled with the patient's name and designated antral biopsy. The specimen consists of multiple irregular fragments of light laird soft tissue that in aggregate measure 0.6 x 0.2 x 0.1 cm. The specimen is totally submitted in one cassette. B - Received in fixative is one container labeled with the patient's name and designated GE junction biopsy. The specimen consists of one irregular fragment of light laird soft tissue that measures 0.4 x 0.3 x 0.1 cm. The specimen is totally submitted in one cassette. / SJ:mari 12/13/2021 TC:3 CPT: 80723 x2
--- NOTE | 2021-12-12 13:30 | IMM_PTH ---
PATIENT: LUIS ARMANDO KHAN LOC: EN U#:[id number] AGE/SX: 66/F ROOM: RE12/12/[address]: Dr. Gerald Portillo MD : 1955 BED: DIS: 12/12/2021 SPEC #: [id number] RECD: 12/13/21 14:40 STATUS: KADEEM REQ #: [id number] PHYLLIS: 12/12/21 13:[address]: Gerald Portillo DEPT: IMMUNOHISTOCHEMISTRY RECD BY: Amber Miner ENTERED: 12/13/21 14:40 SP TYPE: IMMUNO OTHR DR: Dr. Argenis Gray MD Tissues: A - Stomach, NOS Procedures: H Pylori (initial) PHYSICIAN & INSTITUTION [place] [address] SPECIMEN INFORMATION: Tissue Source: A ? Antral biopsy Clinical Info: Chronic cough, heartburn, acid reflux Specimen Number: [id number] CPT code: 61310 METHODOLOGY: Deparaffinized sections of prefer/formalin-fixed tissue or PAP/DQ stained slides are incubated with monoclonal/polyclonal antibodies/oligonucleotide probes. Localization is made via biotin free immunoperoxidase method. Appropriate controls are performed and reacted as expected. Results on target cell population are indicated in the following table: RESULTS: ANTIBODY / CLONE RESULT Block A H Pylori (polyclonal) negative These tests were developed and their performance characteristics determined by [facility]. They may not have been cleared or approved by the U.S. Food and Drug Administration. The FDA has determined that such clearance or approval is not necessary. INTERPRETATION: A. Antral biopsy: Negative for Helicobacter pylori organisms. SJ:mari 12/14/2021
[2021-12-12 13:54] VITALS: BP 130/77; BP 91/73; PULSE 69; RESP 16; TEMP 36.5; O2SAT 100
--- NOTE | 2021-12-12 13:58 | OP.EGD_ITS ---
Patient Name: Nini Diamond Procedure Date: 12/12/2021 1:17 PM Date of : 1955 Age: 66 Procedure: Upper GI endoscopy Indications: Suspected esophageal reflux, Chronic cough Providers: Gerald Portillo MD Medicines: See the Anesthesia note for documentation of the administered medications Patient Profile: Refer to note in patient chart for documentation of history and physical. Complications: No immediate complications. Estimated blood loss: Minimal. Procedure: Pre-Anesthesia Assessment: - The heart rate, respiratory rate, oxygen saturations, blood pressure, adequacy of pulmonary ventilation, and response to care were monitored throughout the procedure. After obtaining informed consent, the endoscope was passed under direct vision. Throughout the procedure, the patient's blood pressure, pulse, and oxygen saturations were monitored continuously. The Endoscope was introduced through the mouth, and advanced to the second part of duodenum. The upper GI endoscopy was accomplished without difficulty. The patient tolerated the procedure well. Scope In: 1:36:21 PM Scope Out: 1:49:03 PM Total Procedure Duration Time 0 hours 12 minutes 42 seconds Findings: The first portion of the duodenum and second portion of the duodenum were normal. No biopsies or other specimens were collected for this exam. Segmental mild inflammation characterized by erythema was found on the greater curvature of the stomach and in the gastric antrum. Biopsies were taken with a cold forceps for histology. Biopsies were taken with a cold forceps for Helicobacter pylori cultures. Estimated blood loss was minimal. A small hiatal hernia was present. No biopsies or other specimens were collected for this exam. The Z-line was regular and was found 34 cm from the incisors. Biopsies were taken with a cold forceps for histology. Estimated blood loss was minimal. The exam was otherwise without abnormality. Impression: - Normal first portion of the duodenum and second portion of the duodenum. No specimens collected. - Gastritis. Biopsied. - Small hiatal hernia. No specimens collected. - Z-line regular, 34 cm from the incisors. Biopsied. - The examination was otherwise normal. Recommendation: - Discharge patient to home (via wheelchair). - Resume regular diet today. - Use Prilosec (omeprazole) 20 mg PO daily today. - Continue present medications. Procedure Code(s): --- Professional --- 17748, Esophagogastroduodenoscopy, flexible, transoral; with biopsy, single or multiple Diagnosis Code(s): --- Professional --- K29.70, Gastritis, unspecified, without bleeding K44.9, Diaphragmatic hernia without obstruction or gangrene R05, Cough CPT copyright 2017 [employer]. All rights reserved. The codes documented in this report are preliminary and upon health information coder review may be revised to meet current compliance requirements. Gerald Portillo MD 12/12/2021 1:57:14 PM This report has been signed electronically. Number of Addenda: 0 Note Initiated On: 12/12/2021 1:17 PM
--- NOTE | 2021-12-12 13:58 | OP.CCLET_ITS ---
12/12/2021 Argenis Gray [place] [id number] [address] Re : Upper GI endoscopy procedure for Nini Diamond Dear Dr. Gray This procedure was performed on Sunday, December 12, 2021. My impressions and recommendations are as follows: Impressions : - Normal first portion of the duodenum and second portion of the duodenum. No specimens collected. - Gastritis. Biopsied. - Small hiatal hernia. No specimens collected. - Z-line regular, 34 cm from the incisors. Biopsied. - The examination was otherwise normal. Recommendations : - Discharge patient to home (via wheelchair). - Resume regular diet today. - Use Prilosec (omeprazole) 20 mg PO daily today. - Continue present medications. My findings are described in the full procedure note, which is enclosed. If I can be of further assistance, please feel free to contact me at Doctor phone number(s): , Work: . Sincerely, Gerald Portillo MD 12/12/2021 1:57:14 PM This report has been signed electronically.
[2021-12-12 14:00] VITALS: BP 130/77; BP 91/73; PULSE 60; RESP 16; O2SAT 100
[2021-12-12 14:05] VITALS: BP 101/74; BP 130/77; PULSE 59; RESP 16; O2SAT 100
[2021-12-12 14:10] VITALS: BP 106/75; BP 130/77; PULSE 58; RESP 16; TEMP 36.3; O2SAT 100
[2021-12-12 14:26] VITALS: BP 130/77
== END 2021-12-12 23:59 | disposition home or self-care (01) ==
LOC: EN 12:20 → AC 12:33
PROVIDERS: PCP Family Medicine; Referring Provider Family Medicine; Visit Provider Surgery
PROC: 0DJ08ZZ Inspection of Upper Intestinal Tract, Via Natural or Artificial Opening Endoscopic (ICD-10-PCS; CPT 43235; principal; 2021-12-12 13:25)
DX: K29.50 Unspecified chronic gastritis without bleeding (principal); K44.9 Diaphragmatic hernia without obstruction or gangrene; R05.3 Chronic cough; K21.9 Gastro-esophageal reflux disease without esophagitis; Z79.899 Other long term (current) drug therapy; Z80.0 Family history of malignant neoplasm of digestive organs
CPT/HCPCS: 43239; 88305; 88313; 88342; J7120

== ENCOUNTER 2021-12-15 07:46 | Outpatient (CLI) | payer MEDICARE, SELFPAY ==
[2021-12-15 08:01] LABS: Absolute Lymphocyte Count 1.69 X10^3/uL (0.83-4.51); Absolute Neutrophil Count 3.3 X10^3/uL (2.0-7.7); Basophil# 0.03 X10^3/uL; Basophil% 0.5 % (0-1); Eosinophil# 0.12 X10^3/uL; Eosinophils% 2.1 % (0-5); Hematocrit 39.4 % (37-47); Hemoglobin 13.5 g/dL (12.0-15.0); Lymphocyte # 1.69 X10^3/ul (0.83-4.51); Lymphocyte % 29.7 % (19-41); Mean Corp Hgb Conc 34.3 g/dL (32-36); Mean Corpuscular Hgb 31.8 pg (27.0-32.0); Mean Corpuscular Volume 92.7 fL (81-99); Mean Platelet Vol. 9.9 fl (6.2-12.0); Monocyte# 0.55 X10^3/uL; Monocyte% 9.7 % (0-10); NRBC Flagged by Analyzer 0 % (0-5); Neutrophil # 3.29 X10^3/uL (2.7-7.7); Neutrophil % 57.8 % (47-70); Platelet Count 238 K/mm3 (150-450); RBC Distribution Width CV 12.2 % (11.6-14.6); RBC Distribution Width SD 41.9 fl (35.1-43.9); Red Blood Count 4.25 M/mm3 (4.2-5.4); White Blood Count 5.7 K/mm3 (4.4-11.0)
[2021-12-15 08:27] LABS: ALB/GLOB Ratio 0.9 RATIO (0.9-2.4); AST(SGOT) 24 U/L (15-37); Alanine Aminotransfer ALT/SGPT 27 U/L (13-56); Albumin, Serum 3.6 g/dL (3.2-5.0); Alkaline Phosphatase 115 U/L (45-117); Anion Gap 4 (5-15); BUN 15 mg/dL (7-18); BUN/Creat Ratio 13.4 RATIO (10-20); Calcium,Total 9.1 mg/dL (8.5-10.1); Chloride 108 mmol/L (98-107); Cholesterol 194 mg/dL (200); Creatinine, Serum 1.12 mg/dL (0.55-1.02); EST Glomerular Filtration Rate 52 mL/min (>60); Est Glom Filt Rate - Afr Amer 62 mL/min (>60); Globulin 3.8 g/dL (2.2-4.2); Glucose 101 mg/dL (74-106); High Density Lipoprotein 50 mg/dL; Potassium 4.3 mmol/L (3.5-5.1); Protein, Total 7.4 g/dL (6.4-8.2); Sodium Level 139 mmol/L (136-145); Triglycerides 157 mg/dL; Very Low Density Lipoprotein 31 mg/dL (5-40)
== END 2021-12-15 23:59 | disposition home or self-care (01) ==
LOC: LAB 07:47
PROVIDERS: PCP Family Medicine; Visit Provider Family Medicine
DX: Z00.00 Encounter for general adult medical examination without abnormal findings (principal); E78.5 Hyperlipidemia, unspecified; K21.00 Gastro-esophageal reflux disease with esophagitis, without bleeding
CPT/HCPCS: 36415; 80053; 80061; 85025

== ENCOUNTER 2021-12-26 06:48 | Outpatient (CLI) | payer MEDICARE, SELFPAY ==
--- NOTE | 2021-12-26 07:49 | CPS ---
Patient completed all 5 doses of Methacholine as well as a normal saline baseline dose. Medication was not entered onto MAR correctly as incremental dosing but I was able to scan each dose individually.
--- NOTE | 2021-12-26 09:27 | BRONCHALL_ITS ---
Bronchoprovocation Challenge Bronchoprovocation Challenge Bronchoprovocation Challenge: BRONCHOPROVOCATION STUDY INTERPRETATION Brief HPI: Patient is a 66 year old female, currently under the care of Ama Leo, who presents to [facility] for a bronchoprovocation study secondary to diagnosis of chronic cough. Respiratory therapist reports good effort and reproducible results. Interpretation: Initial spirometry showed no large airways obstructive ventilatory defect. The patient was then given increasingly concentrated doses of methacholine in a stepwise/standardized fashion, using a modified ATS protocol. The patient?s maximum reduction in FEV1 was 9 percent predicted. Impression: Negative Bronchoprovocation study. This is NOT consistent with the diagnosis of asthma.
== END 2021-12-26 23:59 | disposition home or self-care (01) ==
LOC: PSN 06:51
PROVIDERS: PCP Family Medicine; Referring Provider Nurse Practitioner Acute Care; Visit Provider Nurse Practitioner Acute Care
DX: R05.3 Chronic cough (principal)
CPT/HCPCS: 94070; 95070

== ENCOUNTER → 2022-03-07 | Outpatient (CLI) | payer MEDICARE, SELFPAY ==
--- NOTE | 2022-03-07 08:28 | BI_ITS ---
MAMMOGRAPHY - BILATERAL SCREENING REASON FOR EXAM: Female, 67 years old. Routine annual screening examination. PERTINENT HISTORY: Sister with breast cancer TECHNIQUE: Digital bilateral breast mariangel (3D mammographic acquisition) in the CC and MLO projections. 2-D mediolateral oblique (MLO) and craniocaudad (CC) views of both breasts were obtained. CAD: Full Field Digital Mammography with Computer Added Detection was performed. COMPARISON: Screening mammogram from 04/16/2020, 04/22/2019. FINDINGS: Breast Composition: There are scattered areas of fibroglandular density. There are no dominant masses or suspicious calcifications. Nodular asymmetries in the bilateral upper breasts are stable since 2018 and likely represent benign lymph nodes. Stable benign-appearing bilateral axillary lymph nodes. No other significant abnormalities are identified. There has been no significant change since the prior study. BI/SCRN MAMM (CAD)W/MARIANGEL BILAT IMPRESSION: Stable bilateral screening mammogram. Yearly follow-up mammogram recommended. (A) ASSESSMENT CATEGORY: BIRADS Category 2: Benign. A letter regarding these results will be sent to the patient by the facility within 30 days. Approximately 10% of breast cancers are not detected by mammography. A normal mammogram should not delay biopsy of a clinically suspicious abnormality. [id number] Electronically Signed: Moreno Noriega, at 13:24 EDT ,
--- NOTE | 2022-03-07 08:45 | BD_ITS ---
EXAM: XR DEXA BONE DENSITY APPENDICULAR CLINICAL INDICATION: 733.00OsteoporosisBONE DENSITY REASON FOR EXAM TECHNIQUE: Dual energy x-ray absorptiometry performed. Bone mineral density measurements were obtained of the appendicular skeleton. Values are compared with gender matched average of normal, and with age, weight and ethnic origin (Z-score) and with healthy young adults (T-score). This report was created using [employer] technology. COMPARISON: None. FINDINGS: LEFT DISTAL RADIUS BONE MINERAL DENSITY: LEFT DISTAL RADIUS T-SCORE: OTHER FINDINGS: Within the right femoral neck the bone mineralization density measured 0.618 g/sq cm which is a T score of -2.1 compatible with osteopenia. Left femoral neck the bone mineralization density measured 0.631 g/sq cm which gave a T score of -2.0 compatible with osteopenia. Lumbar spine the bone mineralization density is measured at L1 L4 is a total value of 0.794 g/sq cm which gave a T score of -2.2. UNITS OF MEASURE: Bone mineral density is measured in g/cm2. Z-score is the number of standard deviations above age-matched controls. T-score is the number of standard deviations above healthy young adults. WORLD HEALTH ORGANIZATION GUIDELINES: T-score at or above -1 is normal bone mineral density. T-score between -1 and -2.5 is osteopenia. T-score at or below -2.5 is osteoporosis. BD/Dexa Bone Density Study IMPRESSION: Bone mineralization density compatible osteopenia in the lumbar spine and femoral necks. Electronically Signed: Ravi Garcia MD at 1:38 EDT ,
== END | disposition home or self-care (01) ==
LOC: OPBD 07:58
PROVIDERS: PCP Family Medicine; Referring Provider Family Medicine; Visit Provider Family Medicine
DX: M81.0 Age-related osteoporosis without current pathological fracture (principal); Z12.31 Encounter for screening mammogram for malignant neoplasm of breast
CPT/HCPCS: 77063; 77067; 77080

== ENCOUNTER → 2022-04-11 | Outpatient (CLI) | payer MEDICARE, SELFPAY ==
[2022-04-11 11:17] LABS: Absolute Lymphocyte Count 1.52 X10^3/uL (0.83-4.51); Absolute Neutrophil Count 7.3 X10^3/uL (2.0-7.7); Basophil# 0.02 X10^3/uL; Basophil% 0.2 % (0-1); Eosinophil# 0.09 X10^3/uL; Eosinophils% 0.9 % (0-5); Hematocrit 40.1 % (37-47); Hemoglobin 13.4 g/dL (12.0-15.0); Lymphocyte # 1.52 X10^3/ul (0.83-4.51); Lymphocyte % 15.4 % (19-41); Mean Corp Hgb Conc 33.4 g/dL (32-36); Mean Corpuscular Hgb 32.3 pg (27.0-32.0); Mean Corpuscular Volume 96.6 fL (81-99); Mean Platelet Vol. 9.7 fl (6.2-12.0); Monocyte% 9.1 % (0-10); NRBC Flagged by Analyzer 0 % (0-5); Neutrophil % 74.2 % (47-70); Platelet Count 229 K/mm3 (150-450); RBC Distribution Width CV 12.6 % (11.6-14.6); RBC Distribution Width SD 45.1 fl (35.1-43.9); Red Blood Count 4.15 M/mm3 (4.2-5.4); White Blood Count 9.9 K/mm3 (4.4-11.0)
[2022-04-11 11:30] LABS: Color, Urine Yellow (Yellow); Glucose, Dipstick Normal (Normal); Ketone-Dipstick Negative (Negative); Leukocyte Esterase-Dipstick Negative /ul (Negative); Nitrite-Dipstick Negative (Negative); Occult Blood-Urine Negative /ul (Negative); Protein-Dipstick Negative (Negative); Specific Gravity, Urine 1.015 (1.002-1.030); Urine Bilirubin Dipstick Negative (Negative); Urine Clarity Clear (Clear); Urine Urobilinogen Normal (Normal)
[2022-04-11 12:06] LABS: ALB/GLOB Ratio 0.9 RATIO (0.9-2.4); AST(SGOT) 21 U/L (15-37); Alanine Aminotransfer ALT/SGPT 22 U/L (13-56); Albumin, Serum 3.4 g/dL (3.2-5.0); Alkaline Phosphatase 109 U/L (45-117); Anion Gap 4 (5-15); BUN 14 mg/dL (7-18); BUN/Creat Ratio 13.2 RATIO (10-20); Chloride 108 mmol/L (98-107); Creatinine, Serum 1.06 mg/dL (0.55-1.02); EST Glomerular Filtration Rate 55 mL/min (>60); Est Glom Filt Rate - Afr Amer 66 mL/min (>60); Globulin 3.7 g/dL (2.2-4.2); Glucose 109 mg/dL (74-106); Potassium 4.2 mmol/L (3.5-5.1); Protein, Total 7.1 g/dL (6.4-8.2); Sodium Level 139 mmol/L (136-145)
== END | disposition home or self-care (01) ==
LOC: LAB 10:57
PROVIDERS: PCP Family Medicine; Referring Provider Family Medicine; Visit Provider Family Medicine
DX: R10.32 Left lower quadrant pain (principal)
CPT/HCPCS: 36415; 80053; 81002; 85025

== ENCOUNTER → 2022-08-09 | Outpatient (CLI) | payer MEDICARE, SELFPAY ==
--- NOTE | 2022-08-09 06:43 | MRI_ITS ---
STUDY: MRI RIGHT SHOULDER REASON FOR EXAM: Female, 67 years old. SHOULDER PAIN NO KNOWN INJURY PAIN X 4 MONTHS DECREASED ROM TECHNIQUE: Standardized fat and water weighted pulse sequences were obtained in all 3 orthogonal planes. COMPARISON: None. FINDINGS: There is partial interstitial tearing and high-grade tendinosis of the supraspinatus tendon across the greater tuberosity insertion site. Small benign humeral joint effusion noted. Normal infraspinatus tendon. Normal subscapularis tendon. Normal teres minor tendon. Normal supraspinatus muscle. Normal infraspinatus muscle. Normal subscapularis muscle. Normal teres minor muscle. Normal glenohumeral articulation. Normal humeral head and visualized proximal humerus. Normal biceps labral complex. Normal intracapsular long biceps tendon. Normal labrum. Normal capsulo- ligamentous complex. Normal rotator interval. There is mild to moderate osteoarthritis of the acromioclavicular articulation, with mild underlying impingement at the musculotendinous junction of the supraspinatus. There is a Type II morphology (curved), with a neutral orientation. There is no subacromial-subdeltoid bursal fluid. Normal visualized coracohumeral and coracoacromial ligaments. Normal quadrilateral space. Normal axillary space. Normal deltoid muscle. Normal trapezius muscle. MRI/Upper Ext Joint Only(Routine) IMPRESSION: 1. Partial tearing and high-grade tendinosis of the supraspinatus tendon. 2. 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 Electronically Signed: Chalo Rubio MD at 14:33 EST ,
== END | disposition home or self-care (01) ==
LOC: MRI 06:30
PROVIDERS: PCP Family Medicine; Referring Provider Specialist; Visit Provider Specialist
DX: M25.511 Pain in right shoulder (principal); M65.811 Other synovitis and tenosynovitis, right shoulder; M75.41 Impingement syndrome of right shoulder
CPT/HCPCS: 73221

== ENCOUNTER → 2023-03-14 | Outpatient (CLI) | payer MEDICARE, SELFPAY ==
--- NOTE | 2023-03-14 07:18 | BI_ITS ---
MAMMOGRAPHY - BILATERAL SCREENING REASON FOR EXAM: Female, 68 years old. Routine annual screening examination. PERTINENT HISTORY: Sister with breast cancer. TECHNIQUE: Digital bilateral breast mariangel (3D mammographic acquisition) in the CC and MLO projections. 2-D mediolateral oblique (MLO) and craniocaudad (CC) views of both breasts were obtained. CAD: Full Field Digital Mammography with Computer Added Detection was performed. COMPARISON: Comparison is made with prior study dated March 07, 2022. FINDINGS: Breast Composition: The breasts are almost entirely fatty. There are no dominant masses or suspicious calcifications. Stable small benign-appearing bilateral axillary length nodes. No other significant abnormalities are identified. There has been no significant change since the prior study. BI/SCRN MAMM (CAD)W/MARIANGEL BILAT IMPRESSION: Stable bilateral screening mammogram. Yearly follow-up mammogram recommended. (A) ASSESSMENT CATEGORY: BIRADS Category 2: Benign. A letter regarding these results will be sent to the patient by the facility within 30 days. Approximately 10% of breast cancers are not detected by mammography. A normal mammogram should not delay biopsy of a clinically suspicious abnormality. [id number] Electronically Signed: Nixon Zaidi MD at 8:43 EDT ,
== END | disposition home or self-care (01) ==
LOC: OPBI 07:17
PROVIDERS: PCP Family Medicine; Referring Provider Family Medicine; Visit Provider Family Medicine
DX: Z12.31 Encounter for screening mammogram for malignant neoplasm of breast (principal)
CPT/HCPCS: 77063; 77067

== ENCOUNTER → 2023-07-03 | Outpatient (CLI) | payer MEDICARE, SELFPAY ==
--- NOTE | 2023-07-03 09:35 | RAD_ITS ---
STUDY: X-RAY CHEST REASON FOR EXAM: Female, 68 years old. Cough. TECHNIQUE: Frontal and lateral views of the chest. COMPARISON: September 01, 2021. FINDINGS: The lungs are clear and expanded. There is no demonstrated pleural abnormality. Normal size heart. Normal mediastinum and heather. Normal visualized pulmonary arteries. Normal visualized aortic arch and descending thoracic aorta. Normal visualized thoracic spine. Normal visualized ribs, clavicles, and shoulders. No abnormality of the visualized soft tissue structures of the upper abdomen. RAD/Chest PA and Lateral IMPRESSION: No interval change and no acute or active cardiopulmonary disease. Electronically Signed: Kris Weems MD at 11:38 EDT ,
== END | disposition home or self-care (01) ==
LOC: LAB 09:31 → RAD 09:32
PROVIDERS: PCP Family Medicine; Referring Provider Nurse Practitioner Family; Visit Provider Nurse Practitioner Family
DX: R05.3 Chronic cough (principal)
CPT/HCPCS: 71046

== ENCOUNTER → 2023-08-29 | Outpatient (CLI) | payer MEDICARE, SELFPAY ==
--- NOTE | 2023-08-29 14:26 | CT_ITS ---
STUDY: CT MAXILLOFACIAL SINUSES REASON FOR EXAM: Female, 68 years old. INFECTION RADIATION DOSAGE (If Supplied By Facility): CTDIvol = ( 33.06 ) mGy, DLP = ( 776.00 ) mGycm TECHNIQUE: The patient was scanned in a multi detector CT scanner. High resolution axial imaging was performed without the administration of intravenous contrast material. Sagittal and coronal images were reconstructed. Individualized dose optimization techniques were used for this CT. COMPARISON: None. FINDINGS: FRONTAL SINUSES: Normal aeration, without mucosal inflammatory disease. ETHMOIDAL SINUSES: Normal aeration, without mucosal inflammatory disease. MAXILLARY SINUSES: Normal aeration, without mucosal inflammatory disease. SPHENOIDAL SINUSES: Mild soft tissue density is seen in the right sphenoid sinus. There is patency of the bilateral maxillary infundibuli with normal uncinate processes, ethmoid bullae, and hiatus semilunaris. Normal bilateral middle turbinates. Normal bilateral inferior turbinates. Normal midline nasal septum. There is patency of the bilateral nasal airways. The visualized osseous structures are normal. The visualized bilateral orbital contents are normal. CT/Sinus/Facial Bone IMPRESSION: Mild degree of soft tissue density is seen in the right sphenoid sinus. Electronically Signed: Nixon Zaidi MD at 15:11 EST ,
== END | disposition home or self-care (01) ==
PROVIDERS: PCP Family Medicine; Visit Provider Otolaryngology
DX: J32.8 Other chronic sinusitis (principal)
CPT/HCPCS: 70486

== ENCOUNTER 2023-09-16 20:15 | Emergency (ER) | payer MEDICARE, SELFPAY ==
[2023-09-16 20:15] VITALS: BP 135/92; PULSE 95; RESP 15; TEMP 36.3; O2SAT 95; BMI 35.2
--- OUTSIDE RECORDS SUMMARY | 2023-09-16 21:25 | XMS RPT_ITS | CCD ---
Author Name Unknown Address [facility] [address] [place] [id number] Organization [facility] Care Team Providers Care Floral Manager Name Role Phone Sae MANZO, Víctor Barrientos Primary Care Provider Medications Completed/Discontinued Medications Medication Drug Class(es) Dates Sig (Normalized) Sig (Original) ascorbic acid 100 mg oral tablet (1 source) Vitamin C take 1 tablet by bebo th once daily Ascorbic Acid (VITAMIN C) 100 mg tablet Take 100 mg by mouth once daily. 0 Active Problems Problem Classification Problem Date Documented Da te Episodic/Chronic Chronic kidney disease (1 source) Chronic kidney disease stage 3; Translations: [Chronic kidney disease (CKD), stage III (moderate)] Onset: 09-05-2018 09-05-2018 Chronic Disorders of lipid metabolism (1 source) Hyperlipidemia; Translations: [Hyperlipidemia, unspecified] 09-14-2017 Chronic Osteoarthritis (1 source) Osteoarthritis; Translations: [Unspecified osteoarthritis, unspecified site] 09-14-2017 Chronic Other nutritional; endocrine; and metabolic disorders (1 source) Obese class I; Translations: [Obesity, unspecified] 09-14-2017 Chronic Other screening for suspected conditions (not mental disorders or infectious disease) (1 source) Patient encounter status; Translations: [Encounter for screening mammogram for malignant neoplasm of breast] Episodic Encounters Encounter Date Encounter Type Care Provider Facility Start: 05-17-2022 ambulatory Víctor Lee MD Work Phone: Internal [facility] Procedures Date Procedure Procedure Detail Performing Clinician Start: 04-16-2020 Mammography Haresh Lee MD Work Phone: Start: 07-23-2019 Adult depression screening assessment Víctor Lee MD Work Phone: Start: 06-17-2017 Colonoscopy Haresh Lee MD Work Phone: Plan of Treatment Date Care Activity Detail Author Start: 07-23-2024 LIPID SCREEN LIPID SCREEN [facility] Start: 07-23-2022 DIABETES SCREEN DIABETES SCREEN [facility] Start: 05-18-2022 Influenza vaccination INFLUENZA (#1) [facility] Start: 12-07-2021 Urine microalbumin profile DTAP,TDAP,TD (2 - Td or Tdap) [facility] Start: 09-17-2021 ADVANCE DIRECTIVE DISCUSSION ADVANCE DIRECTIVE DISCUSSION [facility] Start: 04-16-2021 Mammography MAMMOGRAM [facility] Start: 07-23-2020 Adult depression screening assessment DEPRESSION SCREENING [facility] Start: 07-23-2020 ANNUAL PCP TEAM CHRONIC DISEASE VISIT ANNUAL PCP TEAM CHRONIC DISEASE VISIT [facility] Start: 07-23-2020 HEMOGLOBIN/HEMATOCRIT HEMOGLOBIN/HEMATOCRIT [facility] Start: 07-23-2020 SERUM CREATININE SERUM CREATININE [facility] Start: 06-17-2020 Colonoscopy COLONOSCOPY [facility] Start: 06-17-2020 COLORECTAL CANCER SCREENING COLORECTAL CANCER SCREENING [facility] Start: 01-14-2020 BONE DENSITY BONE DENSITY [facility] Start: 01-14-2020 PNEUMOCOCCAL: 65+ (1 - PCV) PNEUMOCOCCAL: 65+ (1 - PCV) [facility] Start: 07-31-2017 SHINGRIX VACCINE (2 of 3) SHINGRIX VACCINE (2 of 3) [facility] Start: 01-14-2000 COLOGUARD (FIT-DNA) COLOGUARD (FIT-DNA) [facility] Start: 01-14-[address] COLONOGRAPHY [facility] Start: 01-14-2000 FECAL OCCULT BLOOD FECAL OCCULT BLOOD [facility] Start: 01-14-2000 SIGMOIDOSCOPY SIGMOIDOSCOPY [facility] Start: 1955 COVID-19 VACCINE (#1) COVID-19 VACCINE (#1) [facility] End: 06-16-2023 Screening mammography bi 2-view breast inc cad SUSIE SCREENING Radiology Routine Encounter for screening mammogram for breast cancer 1 Occurrences starting 05/17/2022 until 06/16/2023 [facility] Work Phone: Immunizations Immunization Date Immunization Notes Care Provider Fa cility 07-23-2019 influenza, injectabl e, quadrivalent, contains preservative Víctor Lee MD Work Phone: [facility] 06-29-2018 influenza, injectabl e, quadrivalent, contains preservative Víctor Lee MD Work Phone: [facility] 06-05-2017 influenza, seasonal, injectable Víctor Lee MD Work Phone: [facility] 06-05-2017 zoster vaccine, live Juan M dinora Lee MD Work Phone: [facility] 12-08-2011 tetanus toxoid, redu ruiz diphtheria toxoid, and acellular pertussis vaccine, adsorbed Víctor Lee MD Work Phone: [facility] Payers Date Payer Category Payer Medicare BCBS MEDICARE OO S [facility] MEDICARE PPO OOS [id number] 2019-Present [phone] [address] [place] [address] PPO [id number] Social History Date Type Detail Facility Start: 09-14-2017 Tobacco smoking stat us NDIS Never smoked tobacco [facility] Start: 09-14-2017 Tobacco use and exposure Smoke less tobacco non-user [facility] Start: 04-08-2020 Alcohol intake Current drinke r of alcohol (finding) [facility] Start: 09-14-2017 History SDOH Alcohol Comment once per month [facility] Start: 1955 Sex Assigned At Not on file [facility] Clinical Note 05-17-2022 Note Date & Type Note Facility 05-17-2022 Note Patient Outreach (IN [facility]) LUIS ARMANDO KHAN ([id number]) 1955 F Date Time Provider Department 05/17/22 VÍCTOR LEE During your visit today, we recorded the following information about you: Allergies As of Date: 05/17/2022 (No Known Allergies) Date Reviewed: 04/08/2020 Reviewed by: Cole Cross - Fully Assessed Visit Diagnosis:Encounter for screening mammogram for breast cancer [Z12.31] Order(s):[facility] [[id number]] Order #: [id number] FUTURE Prescriptions as of 05/22/2022 - meloxicam (MOBIC) 15 mg tablet Take 1 tablet by mouth once daily. With food. - Ascorbic Acid (VITAMIN C) 100 mg tablet Take 100 mg by mouth once daily. - ELDERBERRY FRUIT ORAL Take by mouth. - omega 8-aic-mdv-fish oil (FISH OIL) 100-160-1,000 mg cap Take 1 capsule by mouth once daily. - multivitamin tablet Take 1 tablet by mouth once daily. - fluticasone (FLONASE ALLERGY RELIEF) 50 mcg/actuation nasal spray Use 1 [place] in each nostril once daily. - hydrOXYzine pamoate (VISTARIL) 25 mg capsule Take 1 capsule by mouth three times daily as needed. - LORATADINE (CLARITIN ORAL) Take by mouth. Problem List As Of Date 05/17/2022 Noted Resolved Obesity (BMI 30.0-34.9) [E66.9] Osteoarthritis [M19.90] Hyperlipidemia [E78.5] CKD (chronic kidney disease) Stage 3, GFR 30-59*09/05/2018 Encounter Status:Closed by CAMMIE WILLSUSER on 05/22/22 [facility] Evaluation note Note Date & Type Note Facility documented in this encounter [facility] Reason for referral (narrative) Diagnostic Procedure Only (Routine) - Pending Review Note Date & Type Note Facility Referral ID Status Reason Start Date Expiration Date Visits Requested Visits Authorized [id number] Pending Review Auto-Generat ed Referral 05/17/2022 06/16/2023 1 1 [facility] Summary Purpose Family History No Family History Records Found Advance Directives No Advanced Directives Records Found Additional Source Comments INFORMATION SOURCE (unrecogn ized section and content) Source Comments (unrecognize d section and content) In the event this informatio n is protected by the Federal Confidentiality of Alcohol and Drug Abuse Patient Records regulations: The Federal rules restrict any use of the information to criminally investigate or prosecute any alcohol or drug abuse patient.[facility] Care Teams (unrecognized sec tion and content) FOR RECORDS PERTAINING TO PATIENTS WHO ARE OR HAVE BEEN ENROLLED IN A CHEMICAL DEPENDENCY/SUBSTANCEABUSE PROGRAM, SOME INFORMATION MAY BE OMITTED. This clinical summary was aggregated from multiple sources. Caution should be exercised in using it in the provision of clinical care. This summary normalizes information from multiple sources, and as a consequence, information in this document may materially change the coding, format and clinical context of patient data. In addition, data may be omitted in some cases. CLINICAL DECISIONS SHOULD BE BASED ON THE PRIMARY CLINICAL RECORDS. [facility]. provides no warranty or guarantee of the accuracy or completeness of information in this document.
--- NOTE | 2023-09-16 22:46 | EX.ED.DYSGE1 ---
HPI History of Present Illness Chief Complaint: Other, Pain/Inj Informant: patient and spouse/S.O. Narrative Narrative: Patient is a 68-year-old female with past medical history of acid reflux and bilateral knee replacements. She states that a few hours prior to arrival she was sitting in her chair when she developed what she describes as lightening bolt pain that started around the posterior ankle on the left and radiated up towards her groin. She states the pain was severe and lasted for approximately 4 minutes and then resolved. She states that there has been no recent trauma or excessive activity and she denies any loss of bowel or bladder control or IV drug use. She states she has never had any pain like this before and was unsure what it was from and secondary to this comes in for evaluation [facility] Medical History Chronic cough Family history of colon cancer GERD (gastroesophageal reflux disease) Heartburn Hepatitis History of colon polyps Non-smoker Post-menopausal Wears glasses Home Medications fluticasone propionate 50 mcg/actuation nasal spray,suspension 1 spray NASAL DAILY allergies 06/29/20 [History Last Taken 01/19/21 07:30] adbbowqv-pdj-hlahu ac 400 mcg-calcium carb 500 mg-vit K1 20 mcg tablet (Women's 50 Plus Daily Formula) 1 ea PO DAILY supplement 06/29/20 [History Last Taken 01/18/21 10:00] famotidine 20 mg tablet 40 mg PO DAILY 11/09/21 [History Last Taken Unknown] Allergy/AdvReac Type Severity Reaction Status Date / Time No Known Allergies Allergy Verified 03/28/22 10:45 Family History Father Colon cancer Mother Heart disease COPD (chronic obstructive pulmonary disease) Other Family history of colon cancer Surgical History H/O section H/O knee surgery History of tonsillectomy and adenoidectomy Hx of colonoscopy Hx of left knee surgery Social History household members: spouse housing: house number of children: 1 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 [employer] Smoking Status: Never smoker second hand exposure: No alcohol intake: current alcohol intake frequency: holidays/special occasions only substance use type: does not use seatbelt use: always do you feel safe at home: Yes ROS ROS ED Constitutional Constitutional ED: Denies chills or fever(s) ENT ENT ED: Denies sore throat Cardiovascular Cardiovascular: Denies chest pain Respiratory/Chest Respiratory/Chest: Denies cough or dyspnea Gastrointestinal Gastrointestinal: Denies abdominal pain, diarrhea, nausea or vomiting Genitourinary Genitourinary ED: Denies dysuria Musculoskeletal Musculoskeletal: Reports other Details: Positive left leg pain ; Denies back pain Integumentary Denies rash Neurologic Neurologic: Denies headache(s), paresthesias or weakness Hematologic/Lymphatic Hematologic/Lymphatic: Denies easy bleeding or easy bruising EXAM Physical Exam Const Vital Signs: 09/16/23 20:15 Temperature 97.3 F L Temperature Source Temporal Pulse Rate 95 Respiratory Rate 15 Blood Pressure 135/92 H Blood Pressure Mean 106 Pulse Ox 95 Oxygen Delivery Method Room Air Positive well nourished and well developed General Appearance ED: well developed HEENT HEENT Narrative: Normocephalic atraumatic Eyes PERRL and EOMs intact bilaterally Neck supple Resp normal respiratory effort and clear to auscultation bilaterally Cardio regular rate and regular rhythm Rate: other Other Details: No murmurs rubs or gallops noted Radial and carotid pulses are equal and symmetric Back/Spine Back/Spine Narrative: No bony deformity or step-off of the thoracic or lumbar spine no midline pain with palpation No clonus or Babinski. Negative straight leg raise. No saddle anesthesia. Patellar reflexes are plus 1 out of 4 bilaterally Extremity normal to inspection Extremity Narrative: No asymmetric edema no pitting edema negative Homans' sign bilaterally Lateral lower extremities are neurovascularly intact Neuro oriented x3, CN's II-XII intact bilaterally and no sensory deficits noted Sensorium / Orientation: alert Psych mental status grossly normal Skin no rashes or lesions noted Skin Narrative: No overlying soft tissue changes to suggest trauma or infection MDM MDM MDM Narrative Medical decision making narrative: Patient presented to the ER with stable vitals and had spontaneous resolution of her symptoms. With her reporting pain extending from the posterior ankle to the groin and description of the pain as lightening bolt symptoms are most consistent with a L5-S1 nerve root compression versus sciatica. She does not have any midline pain and she denies any loss of bowel or bladder control or IV drug use and has been no recent surgical procedures so concern for cauda equina or epidural abscess or discitis is low and I do not feel there is need for testing. Also as she does not have any asymmetric swelling or redness or warmth concern for DVT is low and do not feel there is need for a venous duplex. At this time patient is pain-free so she can follow-up with her orthopedic surgeon to discuss potential MRI of her spine for further evaluation but as vitals are stable and history and exam is most consistent with lumbar radiculopathy and not an infectious vascular or obstructive process she is otherwise safe for discharge History & Record Review Discussion w/independent historian: Patient and Significant other Discharge Plan Triage Chief Complaint: Other, Pain/Inj ED Provider: Margarito Su Dx/Rx/DC Orders Clinical Impression: Acute lumbar radiculopathy, History of colon polyps, Acid reflux Instructions: Understanding Lumbar Radiculopathy Prescriptions: No Action famotidine 20 mg tablet 40 mg PO DAILY fluticasone propionate 1 SPRAY spray,suspension 1 spray NASAL DAILY Women's 50 Plus Daily Formula 1 EACH tablet 1 ea PO DAILY Patient Comments: stop 5 days preop Primary Care Provider: Argenis Gray Referrals: Argenis Gray MD [Primary Care Provider] - Yoel Sotomayor MD [Med Staff - Active Staff] - Activity Restrictions/Additional Instructions: Your history and exam indicate you are having bouts of nerve compression known as radiculopathy. Follow-up with your orthopedic physician to discuss potential MRI for further diagnosis and return to the ER should you have any further concerns Disposition Disposition: Home, Self Care
== END 2023-09-16 23:25 | disposition home or self-care (01) ==
PROVIDERS: Emergency Provider Emergency Medicine; PCP Family Medicine; Visit Provider Emergency Medicine
DX: M54.16 Radiculopathy, lumbar region (principal); K21.9 Gastro-esophageal reflux disease without esophagitis; Z86.010 Personal history of colon polyps
CPT/HCPCS: 99282

== ENCOUNTER → 2024-03-17 | Outpatient (CLI) | payer MEDICARE, SELFPAY ==
--- NOTE | 2024-03-17 07:06 | BI_ITS ---
MAMMOGRAPHY - BILATERAL SCREENING 3-D TOMOSYNTHESIS REASON FOR EXAM: Female, 69 years old. SCREENING PERTINENT HISTORY: No significant family history. TECHNIQUE: 2-D mammograms and 3-D Tomosynthesis of the breast (s) were performed. CAD was performed. COMPARISON: 03/14/2023 FINDINGS: The breast composition is composed of scattered fibroglandular density. Scattered benign calcifications are seen. No dense spiculated masses or suspicious microcalcifications are identified. No architectural distortion is identified. There is no skin thickening or retraction. There has been no significant change since the prior study. BI/SCRN MAMM (CAD)W/MARIANGEL BILAT IMPRESSION: No mammographic signs of malignancy. Routine yearly mammograms recommended. ASSESSMENT CATEGORY: BIRADS Category 1: Negative. A letter regarding these results will be sent to the patient by the facility within 30 days. FOLLOW UP RECOMMENDATION: Yearly follow up mammogram recommended. (A) Approximately 10% of breast cancers are not detected by mammography. A normal mammogram should not delay biopsy of a clinically suspicious abnormality. Electronically Signed: Rome Lei MD at 8:25 EDT ,
== END | disposition home or self-care (01) ==
LOC: OPBI 07:03
PROVIDERS: PCP Family Medicine; Referring Provider Family Medicine; Visit Provider Family Medicine
DX: Z12.31 Encounter for screening mammogram for malignant neoplasm of breast (principal)
CPT/HCPCS: 77063; 77067

== ENCOUNTER → 2024-03-24 | Outpatient (CLI) | payer MEDICARE, SELFPAY ==
[2024-03-24 12:37] LABS: Absolute Lymphocyte Count 2.28 X10^3/uL (0.83-4.51); Basophil# 0.03 X10^3/uL; Basophil% 0.5 % (0-1); Eosinophil# 0.14 X10^3/uL; Eosinophils% 2.4 % (0-5); Hematocrit 44.7 % (37-47); Hemoglobin 14.6 g/dL (12.0-15.0); Lymphocyte # 2.28 X10^3/ul (0.83-4.51); Lymphocyte % 38.6 % (19-41); Mean Corp Hgb Conc 32.7 g/dL (32-36); Mean Corpuscular Hgb 31.3 pg (27.0-32.0); Mean Corpuscular Volume 95.9 fL (81-99); Mean Platelet Vol. 10.6 fl (6.2-12.0); Monocyte% 8.5 % (0-10); NRBC Flagged by Analyzer 0 % (0-5); Neutrophil # 2.95 X10^3/uL (2.7-7.7); Neutrophil % 49.8 % (47-70); Platelet Count 245 K/mm3 (150-450); RBC Distribution Width CV 12.2 % (11.6-14.6); Red Blood Count 4.66 M/mm3 (4.2-5.4); White Blood Count 5.9 K/mm3 (4.4-11.0)
[2024-03-24 12:56] LABS: ALB/GLOB Ratio 0.9 RATIO (0.9-2.4); AST(SGOT) 26 U/L (15-37); Alanine Aminotransfer ALT/SGPT 25 U/L (13-56); Albumin, Serum 3.6 g/dL (3.2-5.0); Alkaline Phosphatase 103 U/L (45-117); Anion Gap 7 (5-15); BUN 17 mg/dL (7-18); BUN/Creat Ratio 16.2 RATIO (10-20); Calcium,Total 9.4 mg/dL (8.5-10.1); Chloride 106 mmol/L (98-107); Cholesterol 238 mg/dL (200); Creatinine, Serum 1.05 mg/dL (0.55-1.02); EST Glomerular Filtration Rate 55 mL/min (>60); Est Glom Filt Rate - Afr Amer 67 mL/min (>60); Glucose 82 mg/dL (74-106); High Density Lipoprotein 50 mg/dL; Potassium 3.7 mmol/L (3.5-5.1); Protein, Total 7.6 g/dL (6.4-8.2); Sodium Level 140 mmol/L (136-145); Triglycerides 275 mg/dL; Very Low Density Lipoprotein 55 mg/dL (5-40)
== END | disposition home or self-care (01) ==
LOC: BFHLAB 08:39
PROVIDERS: PCP Family Medicine; Referring Provider Family Medicine; Visit Provider Family Medicine
DX: Z00.00 Encounter for general adult medical examination without abnormal findings (principal); K21.00 Gastro-esophageal reflux disease with esophagitis, without bleeding; E78.5 Hyperlipidemia, unspecified
CPT/HCPCS: 36415; 80053; 80061; 85025

== ENCOUNTER 2024-04-30 08:21 | Day surgery (SDC) | payer MEDICARE, SELFPAY ==
[2024-04-30] VITALS (8 sets, daily range): BP systolic 73–134; BP diastolic 45–85; PULSE 61–99; RESP 16; TEMP 36–36.8; O2SAT 95–99; BMI 36.3
[2024-04-30] MEDS: Lactated Ringers 1,000 ML 15 ML IV (08:43)
--- NOTE | 2024-04-30 08:48 | H&P.OPEN ---
[facility] - General General Date of Service: 04/30/24 [facility] Narrative LUIS ARMANDO KHAN, is a 69 F who presents for colonoscopy due to history of colon polyps. Patient last colonoscopy was 01/2021 patient to follow-up at that time. Patient's dad was diagnosed with colon cancer at age 40 did pass at age 41. Patient has bowel movements daily denies any blood. Patient denies any chronic abdominal pain/nausea/vomiting. PFSH Medical History Alcohol use History of diverticulitis GERD (gastroesophageal reflux disease) Chronic cough History of colon polyps Family history of colon cancer Wears glasses Post-menopausal Hepatitis Non-smoker Home Medications ?Medication ?Instructions ?Recorded ?Last Taken ?Type fluticasone propionate 50 1 spray NASAL DAILY allergies 06/29/20 04/30/24 History mcg/actuation nasal spray,suspension nmxokjmg-fjo-nkjox ac 400 1 ea PO DAILY supplement 06/29/20 01/18/21 10:00 History mcg-calcium carb 500 mg-vit K1 20 mcg tablet (Women's 50 Plus Daily Formula) amitriptyline 10 mg tablet 10 mg PO QHS 04/14/24 04/29/24 History omeprazole 40 mg capsule,delayed 40 mg PO .QOD 04/14/24 Unknown History release Allergy/AdvReac Type Severity Reaction Status Date / Time No Known Allergies Allergy Verified 04/24/24 15:10 Family History (Updated 04/14/24 @ 08:51 by Jennifer Og) Father Colon cancer, Onset Age: 40 at age 41yrs Mother Heart disease COPD (chronic obstructive pulmonary disease) Other Family history of colon cancer Surgical History (Updated 04/24/24 @ 15:15 by Ramya Turner) History of esophagogastroduodenoscopy (EGD) Hx of colonoscopy Hx of left knee surgery History of tonsillectomy and adenoidectomy H/O section H/O knee surgery Social History household members: spouse housing: house number of children: 1 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 [employer] Smoking Status: Never smoker second hand exposure: No alcohol intake: current alcohol intake frequency: holidays/special occasions only substance use type: does not use seatbelt use: always do you feel safe at home: Yes Past Medical/Surgical History Planned Operation Planned Operative Procedure(s): CSCOPE OA S.O.S: No Previous Hospitalizations/Surgeries HX Hospitalizations: No HX of Surgeries: tonsillectomy age 5 infertility procedure/lap/1989 age 37 total right knee 2016 colonoscopy x3 L TKR 07/14/20 Any Problems With Anesthesia: No You/Your Family Experience Fever (Hyperthermia) With Anes: No Cholinesterase deficiency: No Cardiovascular Hx Chest Pain within Last 2 months: No Hx of Irregular Heartbeat and/or Afib: No Hx Heart Attack: No Hx Congestive Heart Failure: No Hx Rheumatic Fever: No Hx Hypertension: No Hx Internal Defibrillator: No Hx Pacemaker: No Hx Cardiac Catheterization: No Hx Cardiac Surgery/Stents/Etc.: No Hx Stress Test: No Hx Pain in Legs when Walking/Leg Cramps: No Respiratory Chronic Cough: No HX of Shortness of Breath: No (denies) Hoarseness: No Hx Chronic Obstructive Pulmonary Disease (COPD): No Hx Asthma: No Hx Emphysema: No Hx Sleep Apnea: No Hx Respiratory Tract Infection/Cold (presently): No Do You Snore Loudly (louder than talking or can be heard): No Do You Often Feel Tired/ Fatigued/ Sleepy Dring Daytime?: No Has Anyone Observed You Stop Breathing During Sleep?: No Result (for STOP score): Negative Hx Smoking: No Smoking Status: Never smoker Gastrointestinal Controlled With Meds: Yes (TUMS as needed) Hx Gastrointestinal Disorders: Yes (polyps) Hx Gastrointestinal Bleed: No Hx Ulcer: No Hx Hiatal Hernia: No Difficulty Chewing/Swallowing: No Special diet followed at home: No Hx Unplanned Weight Loss of 20#: No HX Unplanned Weight Gain of 20#: No Neurological Hx Seizures: No HX Syncope/Blackout Spells/Unconsciousness: No Hx Transient Ischemic Attacks (TIA): No Hx Multiple Sclerosis: No Hx Parkinson's Disease: No Hx Head/Neck Injury: No Hx Headaches: No Hx Back Injury/Pain: No Recent Onset of Speech Difficulty: No Restless Legs: No Does patient have nerve stimulator: No Blood Disorder Hx Leukemia: No Bleeding Tendencies: No Hx Deep Vein Thrombosis: No Hx High Cholesterol: No (borderline) Blood Transmitted Disease: No Hx Hepatitis: Yes (age 7,treated) Hx Cirrhosis: No Hx Anemia: No Hx Blood Disorders: No Reproduction : No Is Patient Lactating: No Hx Hysterectomy: No Hx Tubal Ligation: No Are You Post Menopause: Yes Genitourinary Hx Renal Disease: No (denies problems voiding post op) Musculoskeletal Hx Arthritis: Yes Hx Rheumatoid Arthritis: No Hx Gout: No Recent Onset of an Orthopedic Problem: No (chronic knee pain) Endocrine Hx Diabetes: No Thyroid Disease: No Hx Steroid Therapy: No Psycho/Social Hx Substance Use: No Hx Alcohol Use: No Hx Anxiety: No Hx Depression: No Mental Illness: No Hx Dementia: No Miscellaneous Hx Cancer: No Recent Exposure to Contagious Disease: No Hx of C-Diff: No Any Loose Teeth: No Allergies No Known Allergies Allergy (Verified 04/24/24 15:10) Discharge Is Pt Admitted From a [facility], or a [facility]: No After D/C, Where Do you Plan to Go: Return Home From the [facility] History Number of Risk Factors: 2 Vital Signs Vital Signs Vital Signs: 04/30/24 08:40 04/30/24 08:40 Temperature 98.3 F Temperature Source Temporal Pulse Rate 99 Respiratory Rate 16 Respiratory Pattern Normal Blood Pressure 134/85 H Blood Pressure Mean 101 Blood Pressure Source Monitor Blood Pressure Position Sitting Blood Pressure Location Right Arm Pulse Ox 99 Oxygen Delivery Method Room Air Weight Weight: 218 lb 4.122 oz Body Mass Index (BMI) 36.3 Physical Exam Const alert, oriented x3 and no apparent distress HEENT normocephalic and head/scalp atraumatic Resp normal respiratory effort Cardio regular rate GI soft to palpation and non-tender; Negative for non-distended Palpation: Negative for guarding Extremity no clubbing, cyanosis or edema Skin no rashes or lesions noted Neuro CN's II-XII intact bilaterally Psych mental status grossly normal Assessment & Plan Assessment/Plan (1) History of colon polyps: (2) Family history of colon cancer: Surgery Risks - Colonoscopy I discussed with the patient the risks of the procedure: Yes Risks Include but are not Limited To: Risks include but are not limited to: Bleeding, perforation requiring further surgery, inability to complete colonoscopy requiring barium enema.
--- NOTE | 2024-04-30 09:01 | PRE.ANES_ITS ---
ASA Classification* ASA Classification ASA Classification: 2 Assessment & Plan Anesthesia* Anesthesia Assessment Anesthesia Assessment: Discussed sedation and/or anesthesia options, risks, benefits, and alternatives with patient/parents/legal guardian/POA. Questions invited. The patient/parents/legal guardian/POA seems to understand and agrees to proceed with anesthesia plan. Reviewed the physical assessment, medical history, allergy history and patient home medications list prior to surgery/procedure/anesthetic and documented any changes. Performed airway and anesthesia risk assessments. Anesthesia Type Anesthesia Type: MAC Anesthesia Focused Assessment* Temperature: 98.3 F Pulse Rate: 99 Blood Pressure: 134/85 Respiratory Rate: 16 Pulse Ox: 99 Airway Assessment Mouth opens: >3 cm Mallampati Score: II Focused Labs Anesthesia Preop lab: CBC WBC 5.9 K/mm3 (4.4-11.0) 03/24/24 08:40 RBC 4.66 M/mm3 (4.2-5.4) 03/24/24 08:40 Hgb 14.6 g/dL (12.0-15.0) 03/24/24 08:40 Hct 44.7 % (37-47) 03/24/24 08:40 Plt Count 245 K/mm3 (150-450) 03/24/24 08:40 CHEMISTRY Potassium 3.7 mmol/L (3.5-5.1) 03/24/24 08:40 Sodium 140 mmol/L (136-145) 03/24/24 08:40 Magnesium 2.0 mg/dL (1.6-2.6) 07/08/20 14:27 BUN 17 mg/dL (7-18) 03/24/24 08:40 Creatinine 1.05 mg/dL (0.55-1.02) H 03/24/24 08:40 Glucose 82 mg/dL (74-106) 03/24/24 08:40 POC Glucose 93 mg/dL (70-110) 07/14/20 05:58 COAG Pre-Assessment Diagnosis/Proposed Procedure Planned Operative Procedure(s): CSCOPE OA Anesthesia History 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 When Was Last Pacemaker Check QUESTION #4 FULL TEXT: You/Your Family Experience fever (hyperthermia) with Anesthesia Last Oral Intake Last Oral intake: Last Oral Intake NPO since 05:45 04/30/24 08:40 Meds taken in AM with sips of No 04/30/24 08:40 water? 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 Female Yes 04/24/24 15:11 HX of Motion Sickness Yes 04/24/24 15:11 HX of N/V After Surgery No 04/24/24 15:11 Non-Smoker Yes 04/24/24 15:11 Duration of Surgery greater No 04/24/24 15:11 than 60 minutes Number of Risk Factors 3 04/24/24 15:11 PONV Score Moderate Risk 04/24/24 15:11 Height & Weight Height & Weight: Anesthesia: Height & Weight Height 5 ft 5 in 04/30/24 08:40 Weight: 99 kg 04/30/24 08:40 Body Mass Index (BMI) 36.3 04/30/24 08:40 Respiratory Assessment Respiratory Assessment - 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 Has anyone observed you stop No 04/30/24 08:49 breathing during sleep? STOP Results Negative 04/30/24 08:49 QUESTION #5 FULL TEXT : Do you snore loudly (louder than talking or can be heard through closed doors)? 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 Specify any problems Hx of Preganancy in last 3 No 04/24/24 15:11 Months Nurse Filling Out Transfusion DSCHRIBER 04/24/24 15:11 & Questions: Date: 04/24/24 04/24/24 15:11 Time: 15:12 04/24/24 15:11 Patient unable to answer at this time (ie. 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: /Reproductive Hx- [employer] mission helicopter aircrewman Hx Now No 04/30/24 08:49 Gestational Age (in weeks): EDC: Hx Hx Para Hx Section SAB No 04/24/24 15:11 Active Medications Active Medications: Current Medications Generic Name Dose Route Start Last Admin Trade Name Freq PRN Reason Stop Dose Admin Lactated Ringer's 1,000 mls @ 15 mls/hr 04/30/24 08:30 04/30/24 08:43 IV 15 mls/hr .Q48H TRACI Administration PFSH Medical History Alcohol use History of diverticulitis GERD (gastroesophageal reflux disease) Chronic cough History of colon polyps Family history of colon cancer Wears glasses Post-menopausal Hepatitis Non-smoker Home Medications ?Medication ?Instructions ?Recorded ?Last Taken ?Type fluticasone propionate 50 1 spray NASAL DAILY allergies 06/29/20 04/30/24 History mcg/actuation nasal spray,suspension mskihjee-ddt-muwqu ac 400 1 ea PO DAILY supplement 06/29/20 01/18/21 10:00 History mcg-calcium carb 500 mg-vit K1 20 mcg tablet (Women's 50 Plus Daily Formula) amitriptyline 10 mg tablet 10 mg PO QHS 04/14/24 04/29/24 History omeprazole 40 mg capsule,delayed 40 mg PO .QOD 04/14/24 Unknown History release Allergy/AdvReac Type Severity Reaction Status Date / Time No Known Allergies Allergy Verified 04/24/24 15:10 Family History Father Colon cancer, Onset Age: 40 at age 41yrs Mother Heart disease COPD (chronic obstructive pulmonary disease) Other Family history of colon cancer Surgical History History of esophagogastroduodenoscopy (EGD) Hx of colonoscopy Hx of left knee surgery History of tonsillectomy and adenoidectomy H/O section H/O knee surgery Social History household members: spouse housing: house number of children: 1 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
--- NOTE | 2024-04-30 09:45 | COLBX_PTH ---
PATIENT: LUIS ARMANDO KHAN LOC: EN U#:[id number] AGE/SX: 69/F ROOM: RE04/30/[address]: Dr. Brigette Corley MD : 1955 BED: DIS: 04/30/2024 SPEC #: [id number] RECD: 04/30/24 13:19 STATUS: KADEEM REQ #: [id number] PHYLLIS: 04/30/24 09:[address]: Brigette Corley DEPT: SURGICAL PATHOLOGY RECD BY: Shannon Pereira ENTERED: 05/01/24 09:07 SP TYPE: COLON BX OTHR DR: Dr. Argenis Gray MD Tissues: A - Sigmoid colon biopsy B - Rectum, NOS Procedures: Surgery Specimen Level IV HEADER OPERATION: Colonoscopy, biopsy, electrohemostasis PRE-OP DIAGNOSIS: History of colon polyps, Family history of colon cancer TISSUE SUBMITTED: A- Sigmoid colon polyp x3, B- Rectal colon polyp biopsy MICROSCOPIC DIAGNOSIS A. Sigmoid colon polyp, biopsy: Fragments of hyperplastic polyp. B. Rectal polyp, biopsy: Hyperplastic polyp. / 05/02/2024 MICROSCOPIC DESCRIPTION Slides are reviewed. GROSS DESCRIPTION A. Received in fixative is one container labeled with the patient's name and designated Sigmoid colon polyp. The specimen consists of two irregular fragments of light laird soft tissue that in aggregate measure 0.6 x 0.5 x 0.1 cm. The specimen is totally submitted in one cassette. B. Received in fixative is one container labeled with the patient's name and designated Rectal colon polyp. The specimen consists of one irregular fragment of light laird soft tissue that measures 0.4 x 0.2 x 0.1 cm. The specimen is totally submitted in one cassette. 05/01/2024 TC:5 CPT:34689d4
--- NOTE | 2024-04-30 10:50 | OP.COLON_ITS ---
Patient Name: Nini Diamond Procedure Date: 04/30/2024 10:18 AM Date of : 1955 Age: 69 Procedure: Colonoscopy Indications: High risk colon cancer surveillance: Personal history of colonic polyps Providers: Brigette Corley MD Referring MD: Brigette Corley MD Medicines: Monitored Anesthesia Care Patient Profile: This is a 69 year old female. Last Colonoscopy: January 2021. Complications: No immediate complications. Procedure: Pre-Anesthesia Assessment: - Prior to the procedure, a History and Physical was performed, and patient medications and allergies were reviewed. The patient's tolerance of previous anesthesia was also reviewed. The risks and benefits of the procedure and the sedation options and risks were discussed with the patient. All questions were answered, and informed consent was obtained. Prior Anticoagulants: The patient has taken no anticoagulant or antiplatelet agents. ASA Grade Assessment: Per anesthesia. After reviewing the risks and benefits, the patient was deemed in satisfactory condition to undergo the procedure. After I obtained informed consent, the scope was passed under direct vision. Throughout the procedure, the patient's blood pressure, pulse, and oxygen saturations were monitored continuously. The colonoscope was introduced through the anus and advanced to the cecum, identified by appendiceal orifice and ileocecal valve. The colonoscopy was performed without difficulty. The patient tolerated the procedure well. The quality of the bowel preparation was good. Scope In: 10:31:17 AM Scope Withdrawal Time 0 hours 10 minutes 21 seconds Scope Out: 10:45:35 AM Total Procedure Duration Time 0 hours 14 minutes 18 seconds Findings: Hemorrhoids were found on perianal exam. Scattered small-mouthed diverticula were found in the sigmoid colon. Three sessile polyps were found in the rectum and sigmoid colon. The polyps were less than 5 mm in size. These polyps were removed with a cold biopsy forceps. Resection and retrieval were complete. Coagulation for hemostasis of bleeding caused by the procedure using heater probe was successful at rectal polyp site. Impression: - Hemorrhoids found on perianal exam. - Diverticulosis in the sigmoid colon. - Three less than 5 mm polyps in the rectum and in the sigmoid colon, removed with a cold biopsy forceps. Resected and retrieved. Treated with a heater probe. Recommendation: - Repeat colonoscopy in 5 years for surveillance based on pathology results. - Continue present medications. Procedure Code(s): --- Professional --- 27339, PT, Colonoscopy, flexible; with biopsy, single or multiple Diagnosis Code(s): --- Professional --- Z86.010, Personal history of colonic polyps K64.9, Unspecified hemorrhoids D12.8, Benign neoplasm of rectum D12.5, Benign neoplasm of sigmoid colon K57.30, Diverticulosis of large intestine without perforation or abscess without bleeding CPT copyright 2021 [employer]. All rights reserved. The codes documented in this report are preliminary and upon room designer review may be revised to meet current compliance requirements. MD Brigette Couch MD 04/30/2024 10:50:33 AM This report has been signed electronically. Number of Addenda: 0 Note Initiated On: 04/30/2024 10:18 AM
--- NOTE | 2024-04-30 10:51 | OP.CCLET_ITS ---
04/30/2024 Argenis Gray [place] [id number] [address] Re : Colonoscopy procedure for Nini Diamond Dear Dr. Gray This procedure was performed on Sunday, April 30, 2024. My impressions and recommendations are as follows: Impressions : - Hemorrhoids found on perianal exam. - Diverticulosis in the sigmoid colon. - Three less than 5 mm polyps in the rectum and in the sigmoid colon, removed with a cold biopsy forceps. Resected and retrieved. Treated with a heater probe. Recommendations : - Repeat colonoscopy in 5 years for surveillance based on pathology results. - Continue present medications. My findings are described in the full procedure note, which is enclosed. If I can be of further assistance, please feel free to contact me at Doctor phone number(s): , Work: . Sincerely, MD Brigette Couch MD 04/30/2024 10:50:33 AM This report has been signed electronically.
--- NOTE | 2024-04-30 10:54 | PCM.POST.ANE ---
Anesthesia: Postop Eval I Current Vital Signs Temperature: 97 F Pulse Rate: 64 Blood Pressure: 73/45 Respiratory Rate: 16 Pulse Ox: 95 Oxygen Delivery Method: Room Air Assessment Airway patent: Yes Spontaneous unlabored respirations: Yes Mental status: Awake and Calm nausea: No Vomiting: No Anesthesia Complication: No Fluid Hydration Crystalloid volume administer (ml): 400 Total IV fluid infused: 400 Progress Note Anesthesia document: Postop Eval 1 completed: Yes
--- NOTE | 2024-04-30 16:26 | PCM.POSTANE2 ---
Anesthesia Postop Eval I Sum Postop Eval Completion status Anesthesia document: Postop Eval 1 completed: Yes Anesthesia Postop Eval I Summary Anesthesia Postop Eval I Summary: Anesthesia Postop Eval I: Assessment Summary Airway patent Yes 04/30/24 10:55 [email or web address] Spontaneous unlabored Yes 04/30/24 10:55 [email or web address] respirations Mental status Awake,Calm 04/30/24 10:55 [email or web address] nausea No 04/30/24 10:55 [email or web address] Vomiting No 04/30/24 10:55 [email or web address] Anesthesia Postop Eval I: Fluid Summary Crystalloid volume administer 400 04/30/24 10:55 [email or web address] (ml) Colloids volume administered ( ml) Blood Product volume administered (ml) Total IV fluid infused 400 04/30/24 10:55 [email or web address] Anesthesia Postop Eval I: Summary Notes Anesthesia Complication No 04/30/24 10:55 [email or web address] Anesthesia Complication Comment: Post-operative progress note Anesthesia: Postop Eval II Evaluation Mental status: Awake and Calm Pain Level: 0 nausea: No Vomiting: No Complications Anesthesia Complication: No
== END 2024-04-30 11:30 | disposition home or self-care (01) ==
LOC: EN 08:22 → AC 08:23
PROVIDERS: PCP Family Medicine; Referring Provider Family Medicine; Visit Provider Surgery
PROC: 0DJD8ZZ Inspection of Lower Intestinal Tract, Via Natural or Artificial Opening Endoscopic (ICD-10-PCS; CPT 45378; principal; 2024-04-30 09:40)
DX: Z12.11 Encounter for screening for malignant neoplasm of colon (principal); K62.1 Rectal polyp; K63.5 Polyp of colon; K57.30 Diverticulosis of large intestine without perforation or abscess without bleeding; K64.9 Unspecified hemorrhoids; K21.9 Gastro-esophageal reflux disease without esophagitis; Z79.899 Other long term (current) drug therapy; Z87.19 Personal history of other diseases of the digestive system; Z80.0 Family history of malignant neoplasm of digestive organs
CPT/HCPCS: 45380; 88305; J7120; J2405

== ENCOUNTER → 2025-03-23 | Outpatient (CLI) | payer MEDICARE, SELFPAY | END | disposition home or self-care (01) | LOC: OPBI 07:33 | PROVIDERS: PCP Family Medicine; Referring Provider Family Medicine; Visit Provider Family Medicine | DX: Z12.31 Encounter for screening mammogram for malignant neoplasm of breast (principal) | CPT/HCPCS: 77063; 77067 ==

== ENCOUNTER → 2025-07-14 | Outpatient (CLI) | payer MEDICARE, SELFPAY ==
[2025-07-14 09:55] LABS: Hematocrit 41.2 % (37-47); Hemoglobin 13.6 g/dL (12.0-15.0); Immature Granulocytes Count 0.010 X10^3/uL (0.0-0.0); Mean Corp Hgb Conc 33.0 g/dL (32-36); Mean Corpuscular Volume 95.6 fL (81-99); Mean Platelet Vol. 10.9 fl (6.2-12.0); NRBC Flagged by Analyzer 0 % (0-5); Platelet Count 247 K/mm3 (150-450); RBC Distribution Width CV 12.3 % (11.6-14.6); RBC Distribution Width SD 42.9 fl (35.1-43.9); Red Blood Count 4.31 M/mm3 (4.2-5.4); White Blood Count 5.8 K/mm3 (4.4-11.0)
[2025-07-14 10:57] LABS: AST(SGOT) 31 U/L (<=31); Alanine Aminotransfer ALT/SGPT 23 U/L (<=34); Albumin, Serum 4.1 g/dL (3.4-4.8); Alkaline Phosphatase 101 U/L (35-104); Anion Gap 10 (5-15); BUN 20 mg/dL (4-19); BUN/Creat Ratio 19.5 RATIO (10-20); Calcium,Total 9.3 mg/dL (7.6-11.0); Carbon Dioxide 24.8 mmol/L (21.0-32.0); Chloride 105 mmol/L (98-108); Cholesterol 228 mg/dL (<=200); Globulin 2.9 g/dL (2.2-4.2); Glucose 93 mg/dL (70-99); Low Density Lipoprotein Calc. 144 mg/dL; Potassium 4.2 mmol/L (3.3-5.1); Triglycerides 203 mg/dL; Very Low Density Lipoprotein 41 mg/dL (5-40); cholesterol:hdl ratio screen 4.85
== END | disposition home or self-care (01) ==
LOC: LAB 07:57
PROVIDERS: PCP Family Medicine; Referring Provider Family Medicine; Visit Provider Family Medicine
DX: Z00.00 Encounter for general adult medical examination without abnormal findings (principal); E78.5 Hyperlipidemia, unspecified; K21.00 Gastro-esophageal reflux disease with esophagitis, without bleeding
CPT/HCPCS: 36415; 80053; 80061; 85025

== ENCOUNTER → 2025-07-22 | Outpatient (CLI) | payer MEDICARE, SELFPAY ==
[2025-07-23 17:08] LABS: Immunoglobulin A 225 mg/dL (87-352)
== END | disposition home or self-care (01) ==
LOC: LAB 09:38
PROVIDERS: PCP Family Medicine; Referring Provider Family Medicine; Visit Provider Family Medicine
DX: K57.92 Diverticulitis of intestine, part unspecified, without perforation or abscess without bleeding (principal)
CPT/HCPCS: 36415; 82784; 83516; 86255

== ENCOUNTER → 2025-08-06 | Outpatient (CLI) | payer MEDICARE, SELFPAY ==
[2025-08-11 10:08] LABS: Calprotectin, Stool 48 ug/g (0-120)
== END | disposition home or self-care (01) ==
LOC: LABSPEC 07:57
PROVIDERS: PCP Family Medicine; Visit Provider Student in an Organized Health Care Education/Training Program
DX: Z87.19 Personal history of other diseases of the digestive system (principal)
CPT/HCPCS: 83993; 87177; 87209; 87329; 87493